=== PATIENT | male | born 1950 | race Caucasian/White ===

== ENCOUNTER 2016-07-30 11:25 | Inpatient (IN) | payer OTHER ==
--- NOTE | 2016-07-30 11:41 | ED Physician Documentation ---
Dyspnea - HISTORIAN Historian: patient - HPI Stated Complaint: dyspnea Chief Complaint: Dyspnea Onset: other (has been having some increasing rpoblems with SOB, Dyspnea. Has developed a cough, ) Duration: continues in ED Initiating Event: denies: upper respiratory illness Severity: moderate Associated Symptoms: productive cough (white). denies: chills, fever, sweating , chest pain, chest discomfort, heart racing, leg pain, calf pain, light- headedness Further Comments: yes (66yo white male with known COPD has been having some increaing dyspnea over the last week to 10 days. Worse with laying down. Denies any chest pain or pressure. Has been having some increase swelling.) - ROS CONST: no problems - PAST HX Lung Disease: COPD, other (Bipolar disorder, vetiligo, OA- genralized) Cardiac Disease: other (HTN) PE Risk Factors: none Surgeries/Procedures: other (tonsilectomy, circumcision) Other History: none Immunizations: referred to PCP Allergies/Adverse Reactions: Allergies Allergy/AdvReac Type Severity Reaction Status Date / Time thioridazine HCl Allergy Rash Verified 07/30/16 11:46 [From [facility]] Home Medications: Ambulatory Orders Medication Instructions Recorded Acetaminophen [Tylenol Extra 1,000 mg PO Q4 PRN 11/07/15 Strength] Calcium Carb 500Mg [Tums] 1,000 mg PO DIRECTED PRN 11/07/15 Metoprolol Tartrate [Lopressor] 50 mg PO BID 11/07/15 - SOCIAL HX Smoking History: less than 1 pack/day (1/2 ppd) Alcohol Use: none Drug Use: none - FAMILY HX Family History: no significant history - VITAL SIGNS Vital Signs: Vital Signs Temp Pulse Resp BP Pulse Ox 140/90 11/09/15 06:00 - REVIEWED ASSESSMENTS Nursing Assessment Reviewed: Yes Vitals Reviewed: Yes Dyspnea Physical Exam - EXAM General Appearance: alert Neck: nml inspection. No: lymphadenopathy Respiratory: no resp. distress, no pain on inspiration, speaks full sentences, respiratory distress (mild), rales (bilateral), rhonchi (few course), no pleuritic chest pain. No: chest wall tenderness CVS: reg. rate & rhythm, no murmur, no gallop, no friction rub, pulses full Abdomen: non-tender, no organomegaly, no distention, no ascites, tenderness Skin: color nml, no rash, nml palp. Extremities: non-tender, normal range of motion Neuro/Psych: oriented x3, CN's nml as tested, mood/affect nml Discharge Clincal Impression: Congestive heart failure Qualifiers: Congestive heart failure type: systolic Congestive heart failure chronicity: acute Qualified Code(s): I50.21 - Acute systolic (congestive) heart failure Home Medications: Ambulatory Orders Acetaminophen [Tylenol Extra Strength] 1,000 mg PO Q4 PRN 11/07/15 Calcium Carb 500Mg [Tums] 1,000 mg PO DIRECTED PRN 11/07/15 Metoprolol Tartrate [Lopressor] 50 mg PO BID 11/07/15 Condition: Fair Disposition: ADMITTED INPATIENT Decision to Admit: [id number] Date of Decison to Admit: 07/30/16 Decision Time: 14:01
[2016-07-30 12:27] LABS: BASOPHILS % 0.4 (0.0-1.5); EOSINOPHILS % 0.1 % (0.0-6.8); LYMPHOCYTES # 0.8 # k/uL (0.6-4.0); MEAN CORPUSCULAR HEMOGLOBIN 30.5 pg (28.0-34.0); MONOCYTES # 0.3 # k/uL (0.0-0.9); MONOCYTES % 2.9 % (0.0-11.0); NEUTROPHILS # 10.2 # k/uL (1.4-7.7)
[2016-07-30 12:44] LABS: eGFR (African) > 60; eGFR (Non-African) > 60
--- NOTE | 2016-07-30 13:40 | Diagnostic Imaging Report ---
[facility] [address] [facility].[address] 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 HISTORY: Dyspnea and cough FINDINGS: Comparison is made to exam dated 01/30/2016. The heart remains enlarged. Mild central vascular prominence has remained stable. No definite acute infiltrate is seen. There is no pleural effusion or pneumothorax. The osseous structures are normal. Impression: 1. Mild cardiomegaly with persistent central vascular prominence, unchanged. Electronically signed on Jul 30, 2016 1:31:12 PM ASSOCIATE PROFESSOR OF VIOLIN by: Anuj RASCON
--- NOTE | 2016-07-30 14:42 | History and Physical Report ---
History of Present Illnes - History of Present Illness Reason for Visit: dyspnea History of Present Illness: 66yo white male with known COPD has been having some increaing dyspnea over the last week to 10 days. Worse with laying down. Denies any chest pain or pressure. Has been having some increase swelling. Patient was seen in the ED and noted to have an elevated BMP and some cardiomegally and pulmonary congestion on chest x-ray. - Past Medical History Cardiac: HTN Psych: Bipolar (well coontrolled at this time.) Musculoskeletal: Osteoarthritis (genrealized) Dermatology: Other (Vetiligo) - Past Surgical History Past Surgical History: Tonsillectomy, Other (circumcision) - Past Family History Father Family History: DM, (91yo) Mother Family History: DM, (dementia, alcoholism) Brother 1 Family History: Other (alcoholism) - Past Social History Smoke: # pack years (25), <1 pack per day (15 cigarettes/day) Occupation: disabled Alcohol: None Drugs: None Lives: [facility]) Domestic Violence: Negative - Health Maintenance Health Maintenance: Cholesterol, Influenza Vaccine, Pneumococcal Vaccine, Colonoscopy Influenza Vaccine: No Pneumonia Vaccine: Yes (current) Resuscitation Status: Resusciation Status Resuscitation Status Full Code - Unable to Obtain History Unable to Obtain: No Review of Systems - Review of Systems Constitutional: Weakness (genralized). negative: Fever, Chills, Sweats Eyes: negative: pain ENT: Nose Discharge, Nose Congestion. negative: Ear Pain, Ear Discharge, Nose Pain, Mouth Pain, Mouth Swelling, Throat Pain, Throat Swelling Respiratory: Cough, Dry, Shortness of Breath, Hemoptysis Cardiovascular: Paroxysmal Noc. Dyspnea, Edema. negative: Chest Pain, Palpitations, Orthopnea, Light Headedness Gastrointestinal: negative: Nausea, Vomiting, Abdominal Pain, Diarrhea, Constipation, Melena, Hematochezia Genitourinary: negative: Dysuria, Frequency Musculoskeletal: Back Pain. negative: Neck Pain, Shoulder Pain Skin: negative: Rash Neurological: negative: Weakness, Numbness - Medications/Allergies Allergies/Adverse Reactions: Allergies Allergy/AdvReac Type Severity Reaction Status Date / Time thioridazine HCl Allergy Rash [facility] 07/30/16 11:46 [facility] Current Inpatient Medications: Current Inpatient Medications Amlodipine Besylate (Norvasc) [address] Benazepril HCl (Lotensin) 20 mg PO QD [facility] Enoxaparin Sodium (Lovenox) 30 mg SQ QD [facility] Stop: 08/12/16 15:01 Furosemide (Lasix) 20 mg IVP 714 [facility] Miscellaneous (Patient Own Med) 1 each PO QDAY [facility] Naproxen (Naprosyn) 375 mg PO BS [facility] Potassium Chloride (Klor-Con M20) 40 meq PO TID [facility] Sodium Chloride (Normal Saline Flush) 3 ml IV BID [facility] Exam - Exam General: Alert, Oriented to Person, Oriented to Place, Oriented to Time, Cooperative, Moderate distress HEENT: Atraumatic, PERRLA Neck: Normal Range of Motion. No: Stridor, Rigidity, Lymphadenopathy Carotids: WNL Thyroid: WNL Lungs: Normal air movement, Speaks full Sentences, Respiratory Distress (mild), Wheezes, Rales (in bases bilaterally). No: Rhonchi Cardiovascular: Regular rate, Normal S1, Normal S2, No murmurs Peripheral Edema: 2 plus Peripheral Pulses: intact Abdomen: Normal bowel sounds, Soft, No tenderness, No hepatospenomegaly, No masses, Distended Integumentary: Normal, [place], Warm, Dry Extremities: No clubbing, No cyanosis, No edema, Normal pulses Neurological: Normal gait, Normal speech, Strength Equal Bilat, Normal tone, Sensation intact, Cranial nerves 3-12 NL, Reflexes 2+ Psych/Mental Status: Mental status NL (at baseline), Mood NL. No: Appropriate Affect (at baseline), Intact Judgment Assessment/Plan - Assessment/Plan (1) Congestive heart failure Status: Acute Assessment: Will start IV Lasix, get serial troponins and monitor respiratory status (2) COPD (chronic obstructive pulmonary disease) Status: Acute (3) Bipolar 1 disorder Status: Acute Assessment: continue with home meds (4) Essential (primary) hypertension Status: Acute Assessment: continue with home meds (5) Osteoarthritis Status: Acute Assessment: continue home meds VTE Assessment - RISK FACTOR SCORE VTE RISK FACTOR SCORES: AGE OVER 60 YEARS, CONGESTIVE HEART FAILURE OR MYOCARDIAL INFARCTION - RISK VTE MODERATE RISK: SCORE OF 2 (RISK PROXIMAL DVT 2-4%) PROPHYAXIS NEEDED
[2016-07-30] MEDS ORDERED: INFLUENZA VACCINE/PF 60 MCG/0.5 ML DISP.SYRIN IM SCH (15:00)
[2016-07-30 15:02] VITALS: BMI 30.9
[2016-07-30] MEDS: FUROSEMIDE 20 MG/2 ML VIAL IVP SCH (15:36)
[2016-07-30] MEDS: BENAZEPRIL HCL 10 MG TABLET PO SCH (15:36)
[2016-07-30] MEDS: ENOXAPARIN SODIUM 30 MG/0.3 ML DISP.SYRIN SQ SCH (15:36)
[2016-07-30] MEDS: NAPROXEN 250 MG TABLET PO SCH (17:07)
[2016-07-30] MEDS: POTASSIUM CHLORIDE 20 MEQ TABLET.ER PO SCH (17:12)
[2016-07-30] MEDS: SALINE FLUSH 10 ML DISP.SYRIN IVF SCH (20:46)
[2016-07-31] MEDS: FUROSEMIDE 20 MG/2 ML VIAL IVP SCH ×2 (06:13→13:10)
[2016-07-31 08:01] LABS: eGFR (African) > 60; eGFR (Non-African) > 60
[2016-07-31] MEDS: POTASSIUM CHLORIDE 20 MEQ TABLET.ER PO SCH ×2 (09:44→12:36)
[2016-07-31] MEDS: NAPROXEN 250 MG TABLET PO SCH ×2 (09:44→17:13)
[2016-07-31] MEDS: SALINE FLUSH 10 ML DISP.SYRIN IVF SCH ×2 (09:45→20:16)
[2016-07-31] MEDS: amLODIPine BESYLATE 5 MG TABLET PO SCH (09:45)
[2016-07-31] MEDS: PATIENT OWN MED 1 EACH EACH PO SCH (09:46)
[2016-07-31] MEDS: ENOXAPARIN SODIUM 30 MG/0.3 ML DISP.SYRIN SQ SCH (15:23)
[2016-07-31] MEDS: BENAZEPRIL HCL 10 MG TABLET PO SCH (15:23)
[2016-07-31] MEDS ORDERED: IBUPROFEN 400 MG TABLET PO PRN (15:55)
--- NOTE | 2016-07-31 16:01 | Inpatient Progress Note ---
Subjective - Required Recertification Statement I anticipate X number of days because-include discharge plan: 1 day - Review of Systems Events since last encounter: Patient seems slightly confused some today. Breathing seems to be better, not as SOB as before. Patient denies any cough at this time. Is having some mild orthopneic symptoms. General: Denies: Chills Cardiovascular: Denies: Chest Pain, Edema Gastrointestinal: Denies: Nausea, Vomiting, Abdominal Pain Neurological: Confusion. Denies: Incoordination, Change in Speech, Seizures Objective - Exam Vitals and I&O: Vital Signs Temp 97 F L 07/31/16 14:13 Pulse 116 H 07/31/16 14:13 Resp 18 07/31/16 10:00 BP 102/74 07/31/16 14:13 Pulse Ox 92 07/31/16 14:13 Intake & Output 07/30/16 07/31/16 07/31/16 23:59 11:59 23:59 Intake Total 240 1080 Balance 240 1080 Weight 87.09 kg 87.543 kg Intake: Oral 240 1080 Other: Voiding Method Urinal Toilet # Voids 1 2 # Bowel Movements 0 General: Alert (mildly confused, I am not following his conversation at time. ) , Oriented to Person, Oriented to Place, Oriented to Time, Cooperative Neck: Supple, No JVD Lungs: Normal air movement, Speaks full Sentences, Rales (bases bilaterally). No: Wheezes, Rhonchi Cardiovascular: Regular rate, Normal S1, Normal S2, No murmurs - Results Results: Laboratory Results WBC 11.60 K/ul (4.00-12.00) 07/30/16 12:15 RBC 4.56 M/ul (3.90-5.20) 07/30/16 12:15 Hgb 13.9 g/dL (12.0-18.0) 07/30/16 12:15 Hct 43.4 % (37.0-53.0) 07/30/16 12:15 MCV 95.1 fl (80.0-100.0) 07/30/16 12:15 MCH 30.5 pg (28.0-34.0) 07/30/16 12:15 MCHC 32.1 g/dL (30.0-36.0) 07/30/16 12:15 RDW 14.4 % (11.3-14.3) H 07/30/16 12:15 Plt Count 397 K/mm3 (130-400) 07/30/16 12:15 Neut % (Auto) 88.1 % (39.0-79.0) H 07/30/16 12:15 Lymph % (Auto) 6.4 % (16.0-50.0) L 07/30/16 12:15 [place] % (Auto) 2.9 % (0.0-11.0) 07/30/16 12:15 Eos % (Auto) 0.1 % (0.0-6.8) 07/30/16 12:15 Baso % (Auto) 0.4 (0.0-1.5) 07/30/16 12:15 Neut # 10.2 # k/uL (1.4-7.7) H 07/30/16 12:15 Lymph # 0.8 # k/uL (0.6-4.0) 07/30/16 12:15 [place] # 0.3 # k/uL (0.0-0.9) 07/30/16 12:15 Eos # 0.0 # k/uL (0.0-0.6) 07/30/16 12:15 Baso # 0.0 # k/uL (0.0-0.5) 07/30/16 12:15 Reactive Lymphs % 2.0 % (0.0-5.0) 07/30/16 12:15 Reactive Lymphs # 0.2 # k/uL (0.0-0.8) 07/30/16 12:15 Sodium 144 mmol/L (136-145) 07/31/16 06:55 Potassium 3.8 mmol/L (3.5-5.0) 07/31/16 06:55 Chloride 101 mmol/L (98-110) 07/31/16 06:55 Carbon Dioxide 37 mmol/L (20-32) H 07/31/16 06:55 BUN 36 mg/dL (10-26) H 07/31/16 06:55 Creatinine 0.9 mg/dL (0.4-1.5) 07/31/16 06:55 Estimated Creat Clear 99 07/31/16 06:55 Est GFR ( Amer) > 60 (60-) 07/31/16 06:55 Est GFR (Non-Af Amer) > 60 (60-) 07/31/16 06:55 Glucose 124 mg/dL (70-99) H 07/31/16 06:55 Calcium 9.1 mg/dL (8.5-10.5) 07/31/16 06:55 Total Bilirubin 0.5 mg/dL (0.2-1.2) 07/30/16 12:15 AST 34 U/L (0-41) 07/30/16 12:15 ALT 61 U/L (0-45) H 07/30/16 12:15 Alkaline Phosphatase 110 U/L (46-116) 07/30/16 12:15 NT-Pro-B Natriuret Pep 736.0 pg/mL (15.0-125.0) H 07/30/16 12:15 Total Protein 7.9 g/dL (6.0-8.5) 07/30/16 12:15 Albumin 5.0 g/dL (3.0-5.5) 07/30/16 12:15 Assessment/Plan - Assessment/Plan (1) Congestive heart failure Status: Acute Current Visit: Yes Assessment: Improved with IV lasix (2) COPD (chronic obstructive pulmonary disease) Status: Acute Current Visit: Yes Assessment: stable (3) Bipolar 1 disorder Status: Acute Current Visit: No Assessment: stable (4) Essential (primary) hypertension Status: Acute Current Visit: No Assessment: stable (5) Osteoarthritis Status: Acute Current Visit: No (6) Hypokalemia Status: Acute Current Visit: Yes Assessment: Potassium is back to normal
[2016-08-01] MEDS: FUROSEMIDE 20 MG/2 ML VIAL IVP SCH ×2 (06:18→15:39)
[2016-08-01 07:42] LABS: eGFR (African) > 60; eGFR (Non-African) > 60
[2016-08-01] MEDS: SALINE FLUSH 10 ML DISP.SYRIN IVF SCH ×2 (08:47→20:07)
[2016-08-01] MEDS: PATIENT OWN MED 1 EACH EACH PO SCH (08:48)
[2016-08-01] MEDS: amLODIPine BESYLATE 5 MG TABLET PO SCH (08:48)
[2016-08-01] MEDS: NAPROXEN 250 MG TABLET PO SCH ×2 (08:48→17:17)
[2016-08-01] MEDS: POTASSIUM CHLORIDE 20 MEQ TABLET.ER PO SCH (08:48)
[2016-08-01] MEDS ORDERED: methylPREDNISolone SOD SUCC 125 MG/2 ML VIAL IVP ONE (10:59)
--- NOTE | 2016-08-01 11:00 | Inpatient Progress Note ---
Subjective - Required Recertification Statement I anticipate X number of days because-include discharge plan: 1 day - Review of Systems Events since last encounter: patient stated he didn't seem to be doing some better. Patient continued to have some congestion and a productive cough up some white to clear phlegm. Patient has been having some mild orthopneic symptoms. No fever or chills noted. General: Denies: Chills, Fatigue Pulmonary: Dyspnea, Cough Cardiovascular: Denies: Chest Pain, Palpitations Gastrointestinal: Denies: Nausea, Vomiting, Abdominal Pain Objective - Exam Vitals and I&O: Vital Signs Temp 97.8 F 08/01/16 08:39 Pulse 92 H 08/01/16 09:00 Resp 22 08/01/16 09:00 BP 134/82 08/01/16 08:39 Pulse Ox 92 08/01/16 08:39 Intake & Output 07/31/16 07/31/16 08/01/16 11:59 23:59 11:59 Intake Total 240 1560 480 Balance 240 1560 480 Weight 87.543 kg 87.09 kg Intake: Oral 240 1560 480 Other: Voiding Method Toilet Toilet Toilet # Voids 1 2 General: Alert, Oriented to Person, Oriented to Place, Oriented to Time, Cooperative, Mild distress Lungs: Normal air movement, Speaks full Sentences, Wheezes (L>R), Rhonchi (few scattered) Extremities: Other (trace edema) Skin: Normal, [place], Warm, Dry Neurological: Normal gait, Normal speech, Cranial nerves 3-12 NL - Results Results: Laboratory Results WBC 11.60 K/ul (4.00-12.00) 07/30/16 12:15 RBC 4.56 M/ul (3.90-5.20) 07/30/16 12:15 Hgb 13.9 g/dL (12.0-18.0) 07/30/16 12:15 Hct 43.4 % (37.0-53.0) 07/30/16 12:15 MCV 95.1 fl (80.0-100.0) 07/30/16 12:15 MCH 30.5 pg (28.0-34.0) 07/30/16 12:15 MCHC 32.1 g/dL (30.0-36.0) 07/30/16 12:15 RDW 14.4 % (11.3-14.3) H 07/30/16 12:15 Plt Count 397 K/mm3 (130-400) 07/30/16 12:15 Neut % (Auto) 88.1 % (39.0-79.0) H 07/30/16 12:15 Lymph % (Auto) 6.4 % (16.0-50.0) L 07/30/16 12:15 [place] % (Auto) 2.9 % (0.0-11.0) 07/30/16 12:15 Eos % (Auto) 0.1 % (0.0-6.8) 07/30/16 12:15 Baso % (Auto) 0.4 (0.0-1.5) 07/30/16 12:15 Neut # 10.2 # k/uL (1.4-7.7) H 07/30/16 12:15 Lymph # 0.8 # k/uL (0.6-4.0) 07/30/16 12:15 [place] # 0.3 # k/uL (0.0-0.9) 07/30/16 12:15 Eos # 0.0 # k/uL (0.0-0.6) 07/30/16 12:15 Baso # 0.0 # k/uL (0.0-0.5) 07/30/16 12:15 Reactive Lymphs % 2.0 % (0.0-5.0) 07/30/16 12:15 Reactive Lymphs # 0.2 # k/uL (0.0-0.8) 07/30/16 12:15 Sodium 143 mmol/L (136-145) 08/01/16 07:10 Potassium 4.0 mmol/L (3.5-5.0) 08/01/16 07:10 Chloride 100 mmol/L (98-110) 08/01/16 07:10 Carbon Dioxide 31 mmol/L (20-32) 08/01/16 07:10 BUN 32 mg/dL (10-26) H 08/01/16 07:10 Creatinine 0.8 mg/dL (0.4-1.5) 08/01/16 07:10 Estimated Creat Clear 111 08/01/16 07:10 Est GFR ( Amer) > 60 (60-) 08/01/16 07:10 Est GFR (Non-Af Amer) > 60 (60-) 08/01/16 07:10 Glucose 128 mg/dL (70-99) H 08/01/16 07:10 Calcium 9.5 mg/dL (8.5-10.5) 08/01/16 07:10 Total Bilirubin 0.5 mg/dL (0.2-1.2) 07/30/16 12:15 AST 34 U/L (0-41) 07/30/16 12:15 ALT 61 U/L (0-45) H 07/30/16 12:15 Alkaline Phosphatase 110 U/L (46-116) 07/30/16 12:15 NT-Pro-B Natriuret Pep 736.0 pg/mL (15.0-125.0) H 07/30/16 12:15 Total Protein 7.9 g/dL (6.0-8.5) 07/30/16 12:15 Albumin 5.0 g/dL (3.0-5.5) 07/30/16 12:15 Assessment/Plan - Assessment/Plan (1) Congestive heart failure Status: Acute Assessment: Appears to be improving but pt is still complaining of some dyspnea and cough. (2) COPD (chronic obstructive pulmonary disease) Status: Acute Assessment: patient may be having a mild exacerbation of his COPD along with the congestive heart failure that may be contributing some to the symptoms that he is having. (3) Bipolar 1 disorder Status: Acute Assessment: stable on home medications. (4) Essential (primary) hypertension Status: Acute Assessment: patient is stable on home medications. (5) Osteoarthritis Status: Acute Assessment: stable (6) Hypokalemia Status: Acute
[2016-08-01] MEDS: BENAZEPRIL HCL 10 MG TABLET PO SCH (15:39)
[2016-08-01] MEDS: ENOXAPARIN SODIUM 30 MG/0.3 ML DISP.SYRIN SQ SCH (15:39)
[2016-08-01] MEDS: methylPREDNISolone SOD SUCC 40 MG/ML VIAL IVP SCH (20:05)
--- NOTE | 2016-08-01 20:44 | Diagnostic Imaging Report ---
[facility] [address] [facility].[address] 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 Clinical history: Cough and chf. Findings: Comparison is made of July 30, 2016. There is interval development of left lower lobe infiltrate and atelectasis. The cardiac and mediastinal silhouettes are stable. Mild pulmonary vascular congestion persists. The trachea is midline and aortic arch contour is normal. Multilevel degenerative thoracic spondylosis as noted. Impression: Left lower lobe infiltrate and atelectasis. ~ Electronically signed on Aug 01, 2016 9:39:33 AM MILLINER HELPER by: Pop RASCON
[2016-08-02] MEDS: FUROSEMIDE 20 MG/2 ML VIAL IVP SCH ×2 (06:11→14:40)
[2016-08-02] MEDS: NAPROXEN 250 MG TABLET PO SCH ×2 (08:08→18:00)
[2016-08-02] MEDS: amLODIPine BESYLATE 5 MG TABLET PO SCH (08:10)
[2016-08-02] MEDS: PATIENT OWN MED 1 EACH EACH PO SCH (08:11)
[2016-08-02] MEDS: POTASSIUM CHLORIDE 20 MEQ TABLET.ER PO SCH (08:11)
[2016-08-02] MEDS: methylPREDNISolone SOD SUCC 40 MG/ML VIAL IVP SCH ×2 (08:12→20:36)
[2016-08-02] MEDS: SALINE FLUSH 10 ML DISP.SYRIN IVF SCH ×2 (08:42→20:36)
--- NOTE | 2016-08-02 09:16 | Inpatient Progress Note ---
Subjective - Required Recertification Statement I anticipate X number of days because-include discharge plan: 2 day - Review of Systems Events since last encounter: Patient's CXR show LLL pneumonia. Patient continues to have some issues with breathing especially with exertion. SAO2 has been stable at lower to mid 90s. Pt has had a mild nonproductive cough. No chest pain or orthopnic symptoms noted. Objective - Exam Vitals and I&O: Vital Signs Temp 98.2 F 08/02/16 06:00 Pulse 81 08/02/16 06:00 Resp 20 08/02/16 06:00 BP 125/86 08/02/16 06:00 Pulse Ox 94 08/02/16 06:00 Intake & Output 08/01/16 08/01/16 08/02/16 11:59 23:59 11:59 Intake Total 480 720 240 Balance 480 720 240 Weight 87.09 kg 87.09 kg Intake: Oral 480 720 240 Other: Voiding Method Toilet Toilet # Voids 2 2 # Bowel Movements 0 General: Alert, Oriented to Person, Oriented to Place, Oriented to Time, Cooperative, Mild distress Lungs: Speaks full Sentences, Respiratory Distress (mild), Rales, Rhonchi. No: Wheezes Cardiovascular: Regular rate, Normal S1, Normal S2 Abdomen: Normal bowel sounds, Soft, No tenderness - Results Results: Laboratory Results WBC 11.60 K/ul (4.00-12.00) 07/30/16 12:15 RBC 4.56 M/ul (3.90-5.20) 07/30/16 12:15 Hgb 13.9 g/dL (12.0-18.0) 07/30/16 12:15 Hct 43.4 % (37.0-53.0) 07/30/16 12:15 MCV 95.1 fl (80.0-100.0) 07/30/16 12:15 MCH 30.5 pg (28.0-34.0) 07/30/16 12:15 MCHC 32.1 g/dL (30.0-36.0) 07/30/16 12:15 RDW 14.4 % (11.3-14.3) H 07/30/16 12:15 Plt Count 397 K/mm3 (130-400) 07/30/16 12:15 Neut % (Auto) 88.1 % (39.0-79.0) H 07/30/16 12:15 Lymph % (Auto) 6.4 % (16.0-50.0) L 07/30/16 12:15 [place] % (Auto) 2.9 % (0.0-11.0) 07/30/16 12:15 Eos % (Auto) 0.1 % (0.0-6.8) 07/30/16 12:15 Baso % (Auto) 0.4 (0.0-1.5) 07/30/16 12:15 Neut # 10.2 # k/uL (1.4-7.7) H 07/30/16 12:15 Lymph # 0.8 # k/uL (0.6-4.0) 07/30/16 12:15 [place] # 0.3 # k/uL (0.0-0.9) 07/30/16 12:15 Eos # 0.0 # k/uL (0.0-0.6) 07/30/16 12:15 Baso # 0.0 # k/uL (0.0-0.5) 07/30/16 12:15 Reactive Lymphs % 2.0 % (0.0-5.0) 07/30/16 12:15 Reactive Lymphs # 0.2 # k/uL (0.0-0.8) 07/30/16 12:15 Sodium 143 mmol/L (136-145) 08/01/16 07:10 Potassium 4.0 mmol/L (3.5-5.0) 08/01/16 07:10 Chloride 100 mmol/L (98-110) 08/01/16 07:10 Carbon Dioxide 31 mmol/L (20-32) 08/01/16 07:10 BUN 32 mg/dL (10-26) H 08/01/16 07:10 Creatinine 0.8 mg/dL (0.4-1.5) 08/01/16 07:10 Estimated Creat Clear 111 08/01/16 07:10 Est GFR ( Amer) > 60 (60-) 08/01/16 07:10 Est GFR (Non-Af Amer) > 60 (60-) 08/01/16 07:10 Glucose 128 mg/dL (70-99) H 08/01/16 07:10 Estimat Average Glucose 128 mg/dL 08/01/16 07:10 Hemoglobin A1c 6.1 % (4.0-5.6) H 08/01/16 07:10 Calcium 9.5 mg/dL (8.5-10.5) 08/01/16 07:10 Total Bilirubin 0.5 mg/dL (0.2-1.2) 07/30/16 12:15 AST 34 U/L (0-41) 07/30/16 12:15 ALT 61 U/L (0-45) H 07/30/16 12:15 Alkaline Phosphatase 110 U/L (46-116) 07/30/16 12:15 NT-Pro-B Natriuret Pep 736.0 pg/mL (15.0-125.0) H 07/30/16 12:15 Total Protein 7.9 g/dL (6.0-8.5) 07/30/16 12:15 Albumin 5.0 g/dL (3.0-5.5) 07/30/16 12:15 Assessment/Plan - Assessment/Plan (1) Congestive heart failure Status: Acute Assessment: improved, chest x-ray for this looks better. (2) COPD (chronic obstructive pulmonary disease) Status: Acute (3) Bipolar 1 disorder Status: Acute Assessment: stable (4) Essential (primary) hypertension Status: Acute (5) Hypokalemia Status: Acute Assessment: resolved (6) Diabetes type 2, controlled Status: Acute Qualifiers: Diabetes mellitus complication status: without complication Plan: will start metformin and check BS. Will start diabetic teaching. (7) Pneumonia Status: Acute Qualifiers: Pneumonia type: due to unspecified organism Laterality: left Lung location: lower lobe of lung Qualified Code(s): J18.9 - Pneumonia, unspecified organism Assessment: Patient's CXR show LLL pneumonia. Will get blood cultures and start IV antibiotics. Will recheck CBC.
[2016-08-02] MEDS: LEVOFLOXACIN 500 MG TABLET PO SCH (10:37)
[2016-08-02] MEDS: AZITHROMYCIN 500 MG in 0.9 % SODIUM CHLORIDE 250 ML IV SCH (10:38)
[2016-08-02 10:44] LABS: BASOPHILS % 0.2 (0.0-1.5); EOSINOPHILS % 0.2 % (0.0-6.8); LYMPHOCYTES # 0.7 # k/uL (0.6-4.0); MEAN CORPUSCULAR HEMOGLOBIN 30.5 pg (28.0-34.0); MONOCYTES # 0.2 # k/uL (0.0-0.9); MONOCYTES % 2.6 % (0.0-11.0); NEUTROPHILS # 8.1 # k/uL (1.4-7.7)
[2016-08-02] MEDS: BENAZEPRIL HCL 10 MG TABLET PO SCH (14:39)
[2016-08-02] MEDS: ENOXAPARIN SODIUM 30 MG/0.3 ML DISP.SYRIN SQ SCH (14:41)
[2016-08-03] MEDS: FUROSEMIDE 20 MG/2 ML VIAL IVP SCH ×2 (06:15→13:47)
[2016-08-03] MEDS: NAPROXEN 250 MG TABLET PO SCH ×2 (07:41→16:38)
[2016-08-03] MEDS: POTASSIUM CHLORIDE 20 MEQ TABLET.ER PO SCH (09:01)
[2016-08-03] MEDS: LEVOFLOXACIN 500 MG TABLET PO SCH (09:01)
[2016-08-03] MEDS: PATIENT OWN MED 1 EACH EACH PO SCH (09:01)
[2016-08-03] MEDS: amLODIPine BESYLATE 5 MG TABLET PO SCH (09:01)
[2016-08-03] MEDS: methylPREDNISolone SOD SUCC 40 MG/ML VIAL IVP SCH ×2 (09:06→21:00)
[2016-08-03] MEDS: SALINE FLUSH 10 ML DISP.SYRIN IVF SCH ×3 (09:07→21:00)
[2016-08-03] MEDS: AZITHROMYCIN 500 MG in 0.9 % SODIUM CHLORIDE 250 ML IV SCH (09:23)
[2016-08-03] MEDS ORDERED: LOSARTAN POTASSIUM 50 MG TABLET PO ONE (12:57)
[2016-08-03] MEDS: BENAZEPRIL HCL 10 MG TABLET PO SCH (16:00)
[2016-08-03] MEDS: ENOXAPARIN SODIUM 30 MG/0.3 ML DISP.SYRIN SQ SCH (16:01)
[2016-08-04] MEDS: FUROSEMIDE 20 MG/2 ML VIAL IVP SCH ×2 (06:33→15:42)
[2016-08-04] MEDS: NAPROXEN 250 MG TABLET PO SCH ×2 (07:35→16:50)
[2016-08-04] MEDS: amLODIPine BESYLATE 5 MG TABLET PO SCH (08:53)
[2016-08-04] MEDS: POTASSIUM CHLORIDE 20 MEQ TABLET.ER PO SCH (08:53)
[2016-08-04] MEDS: LEVOFLOXACIN 500 MG TABLET PO SCH (08:53)
[2016-08-04] MEDS: PATIENT OWN MED 1 EACH EACH PO SCH (08:54)
[2016-08-04 09:03] VITALS: BP 136/94
[2016-08-04] MEDS: AZITHROMYCIN 500 MG in 0.9 % SODIUM CHLORIDE 250 ML IV SCH (09:13)
[2016-08-04] MEDS: methylPREDNISolone SOD SUCC 40 MG/ML VIAL IVP SCH (09:14)
[2016-08-04] MEDS: SALINE FLUSH 10 ML DISP.SYRIN IVF SCH (09:14)
[2016-08-04] MEDS: ENOXAPARIN SODIUM 30 MG/0.3 ML DISP.SYRIN SQ SCH (15:37)
[2016-08-04] MEDS: BENAZEPRIL HCL 10 MG TABLET PO SCH (15:37)
--- NOTE | 2016-08-05 08:40 | Discharge Summary ---
Discharge Summary - Discharge Sumary History of Present Illness: 66yo white male with known COPD has been having some increasing dyspnea over the last week to 10 days. Worse with laying down. Denies any chest pain or pressure. Has been having some increase swelling. Patient was seen in the ED and noted to have an elevated BMP and some cardiomegally and pulmonary congestion on chest x-ray. It was felt that he was having some CHF and was admitted to the hospital for further evaluation and treatment. Home Medications: Ambulatory Orders Medication Instructions Recorded Acetaminophen [Tylenol Extra 1,000 mg PO Q4 PRN 11/07/15 Strength] Calcium Carb 500Mg [Tums] 1,000 mg PO DIRECTED PRN 11/07/15 Metoprolol Tartrate [Lopressor] 50 mg PO BID 11/07/15 Levofloxacin [Levaquin] 500 mg PO DAILY #5 tablet 08/04/16 Metformin HCl [Glucophage] [place] [address] #60 tablet 08/04/16 Prednisone 10 mg PO DIRECTED #7 tablet 08/04/16 Consultations this Visit: None Procedures this Visit: None Allergies/Adverse Reactions: Allergies Allergy/AdvReac Type Severity Reaction Status Date / Time thioridazine HCl Allergy Rash Verified 07/30/16 11:46 [[facility] Discharge Summary: patient is a 66-year-old white male who was admitted to the hospital for congestive heart failure. Patient was started on IV Lasix therapy. Patient had good diuresis. Patient did have some improvement with his respiratory status. However patient continued to have a cough that became productive of some green to yellow phlegm. Repeat chest x-ray showed a developing left lower lobe infiltrate. Patient was subsequently started on Levaquin and azithromycin. Patient was started on high flow nebulization treatments. Patient was noted to have elevated blood sugars during his hospitalization. A1c was drawn and was 6.1. At the time of dismissal patient was doing better but still requiring oxygen therapy in order to maintain SaO2 greater than 90%. Patient was subsequently discharged in stable condition. - Final Diagnosis (1) Congestive heart failure Problems: improved. Patient was advised to check his weight on a daily basis. If he gains more than 3 pounds in 1 day or 5 times a week. Was advised to call me. Patient will have a echocardiogram done on an outpatient basis. (2) COPD (chronic obstructive pulmonary disease) Problems: patient was encouraged to stop smoking. (3) Bipolar 1 disorder Problems: this remained stable on home medications. (4) Essential (primary) hypertension Problems: hypertension remained stable on home medications. (5) Hypokalemia Problems: improved with supplemental K (6) Diabetes type 2, controlled Problems: patient was started on metformin 500 mg daily. (7) Pneumonia Problems: we'll continue antibiotic therapy at home.
--- NOTE | 2016-08-05 08:41 | Inpatient Progress Note ---
Subjective - Required Recertification Statement I anticipate X number of days because-include discharge plan: 1 - Review of Systems Events since last encounter: Patient does seem to be doing better today. Patient does have a cough still, but is less productive. Patient stated he had been ambulating some. Still requires oxygen therapy to maintain SaO2 greater than 90%. Patient denies any chest pain or chest pressure. General: Denies: Night Sweats Cardiovascular: Denies: Chest Pain, Palpitations, Orthopnea, Paroxysmal Noc. Dyspnea Gastrointestinal: Denies: Nausea, Vomiting, Abdominal Pain, Diarrhea, Constipation Genitourinary: Denies: Dysuria, Frequency Objective - Exam Vitals and I&O: Vital Signs Temp 98.3 F 08/04/16 14:00 Pulse 96 H 08/04/16 14:00 Resp 20 08/04/16 14:00 BP 136/94 08/04/16 14:00 Pulse Ox 92 08/04/16 14:00 Intake & Output 08/04/16 08/04/16 08/05/16 11:59 23:59 11:59 Intake Total 400 Balance 400 Weight 90.718 kg Intake: Oral 400 Other: Voiding Method Toilet General: Alert, Oriented to Person, Oriented to Place, Oriented to Time. No: Cooperative, No acute distress, Mild distress Lungs: Normal air movement, Speaks full Sentences, Wheezes (improved some). No : Rales, Rhonchi Cardiovascular: Regular rate, Normal S1, Normal S2, No murmurs Abdomen: Normal bowel sounds, Soft, No tenderness, No hepatospenomegaly Skin: Normal, [place], Warm, Dry Neurological: Normal gait, Normal speech, Cranial nerves 3-12 NL - Results Results: Laboratory Results WBC 9.10 K/ul (4.00-12.00) 08/02/16 10:35 RBC 4.35 M/ul (3.90-5.20) 08/02/16 10:35 Hgb 13.3 g/dL (12.0-18.0) 08/02/16 10:35 Hct 42.1 % (37.0-53.0) 08/02/16 10:35 MCV 96.9 fl (80.0-100.0) 08/02/16 10:35 MCH 30.5 pg (28.0-34.0) 08/02/16 10:35 MCHC 31.5 g/dL (30.0-36.0) 08/02/16 10:35 RDW 14.1 % (11.3-14.3) 08/02/16 10:35 Plt Count 387 K/mm3 (130-400) 08/02/16 10:35 Neut % (Auto) 88.6 % (39.0-79.0) H 08/02/16 10:35 Lymph % (Auto) 7.4 % (16.0-50.0) L 08/02/16 10:35 [place] % (Auto) 2.6 % (0.0-11.0) 08/02/16 10:35 Eos % (Auto) 0.2 % (0.0-6.8) 08/02/16 10:35 Baso % (Auto) 0.2 (0.0-1.5) 08/02/16 10:35 Neut # 8.1 # k/uL (1.4-7.7) H 08/02/16 10:35 Lymph # 0.7 # k/uL (0.6-4.0) 08/02/16 10:35 [place] # 0.2 # k/uL (0.0-0.9) 08/02/16 10:35 Eos # 0.0 # k/uL (0.0-0.6) 08/02/16 10:35 Baso # 0.0 # k/uL (0.0-0.5) 08/02/16 10:35 Reactive Lymphs % 1.1 % (0.0-5.0) 08/02/16 10:35 Reactive Lymphs # 0.1 # k/uL (0.0-0.8) 08/02/16 10:35 Sodium 143 mmol/L (136-145) 08/01/16 07:10 Potassium 4.0 mmol/L (3.5-5.0) 08/01/16 07:10 Chloride 100 mmol/L (98-110) 08/01/16 07:10 Carbon Dioxide 31 mmol/L (20-32) 08/01/16 07:10 BUN 32 mg/dL (10-26) H 08/01/16 07:10 Creatinine 0.8 mg/dL (0.4-1.5) 08/01/16 07:10 Estimated Creat Clear 111 08/01/16 07:10 Est GFR ( Amer) > 60 (60-) 08/01/16 07:10 Est GFR (Non-Af Amer) > 60 (60-) 08/01/16 07:10 Glucose 128 mg/dL (70-99) H 08/01/16 07:10 Estimat Average Glucose 128 mg/dL 08/01/16 07:10 Hemoglobin A1c 6.1 % (4.0-5.6) H 08/01/16 07:10 Calcium 9.5 mg/dL (8.5-10.5) 08/01/16 07:10 Total Bilirubin 0.5 mg/dL (0.2-1.2) 07/30/16 12:15 AST 34 U/L (0-41) 07/30/16 12:15 ALT 61 U/L (0-45) H 07/30/16 12:15 Alkaline Phosphatase 110 U/L (46-116) 07/30/16 12:15 NT-Pro-B Natriuret Pep 736.0 pg/mL (15.0-125.0) H 07/30/16 12:15 Total Protein 7.9 g/dL (6.0-8.5) 07/30/16 12:15 Albumin 5.0 g/dL (3.0-5.5) 07/30/16 12:15 Assessment/Plan - Assessment/Plan (1) Congestive heart failure Status: Chronic (2) Bipolar 1 disorder Status: Acute Assessment: stable on home medications (3) Essential (primary) hypertension Status: Acute Assessment: stable on home medications (4) Hypokalemia Status: Acute (5) Diabetes type 2, controlled Status: Acute Qualifiers: Diabetes mellitus complication status: without complication (6) Pneumonia Status: Acute Qualifiers: Pneumonia type: due to unspecified organism Laterality: left Lung location: lower lobe of lung Qualified Code(s): J18.9 - Pneumonia, unspecified organism Assessment: will continue with present care
== END 2016-08-04 17:05 | disposition home or self-care (01) | DRG 190 ==
LOC: ED 11:25 → SOUTH 13:40
PROVIDERS: ADMIT Family Medicine; ATTEND Family Medicine
DX: J44.1 Chronic obstructive pulmonary disease with (acute) exacerbation (principal); J18.9 Pneumonia, unspecified organism; I50.9 Heart failure, unspecified; F31.9 Bipolar disorder, unspecified; I10 Essential (primary) hypertension; E87.6 Hypokalemia; E11.9 Type 2 diabetes mellitus without complications
CPT/HCPCS: 36415; 71020; 80048; 80053; 83036; 83880; 85025; 87040; 90656; 93005; 97003; 97116; 97161; 97165; 97535; A9270; J0456; J1650; J1940; J2920; J2930; J7050; 99222; 99232; 99238; J1030; S1016

== ENCOUNTER 2017-09-15 19:44 | Inpatient (IN) | payer OTHER ==
[2017-09-15] MEDS ORDERED: IPRATROPIUM/ALBUTEROL SULFATE 3 ML AMPUL.NEB NEB ONE (19:55)
--- NOTE | 2017-09-15 19:55 | ED Physician Documentation ---
General Adult - HISTORIAN Historian: patient - HPI Stated Complaint: cough/chest pain Chief Complaint: Chest Pain Onset: days ago (7) Timing: still present Severity: mild Further Comments: yes (he states he has chest pain after coughing. He states he has been coughing "all my life" he does smoke. Denies a fever He state he took all his meds today. He does continue to smoke.) Last known Well Code/Unknown Code: Unknown - ROS CONST: denies: fever, recent illness EYES/ENT: none CVS/RESP: chest pain, shortness of breath, cough GI/: denies: vomiting, nausea, diarrhea MS/SKIN/LYMPH: denies: calf pain, back pain NEURO/PSYCH: denies: headache, dizziness, numbness - PAST HX Past History: COPD, CHF, hypertension Surgeries/Procedures: other Immunizations: UTD Allergies/Adverse Reactions: Allergies Allergy/AdvReac Type Severity Reaction Status Date / Time thioridazine HCl Allergy Rash Verified 07/30/16 11:46 [From [facility]] Home Medications: Ambulatory Orders Medication Instructions Recorded Acetaminophen [Tylenol Extra 1,000 mg PO Q4 PRN 11/07/15 Strength] Citalopram Hydrobromide 20 mg PO DAILY 09/15/17 [Citalopram HBr] - SOCIAL HX Smoking History: cigarettes Alcohol Use: none Drug Use: none - FAMILY HX Family History: No - VITAL SIGNS Vital Signs: Vital Signs Temp Pulse Resp BP Pulse Ox 136/94 08/04/16 14:00 - REVIEWED ASSESSMENTS Nursing Assessment Reviewed: Yes Vitals Reviewed: Yes Progress - Progress Progress: 2138: he states he is feeling "ok" . DG ED Results Lab/Radiology - Radiology Radiology Impressions: Chest PA and lateral views Clinical history: Cough, dyspnea and chest pain There is large alveolar infiltrates in the right lower lobe and right middle lobe adjacent to the right heart margin. Smaller infiltrate seen in the left lung base. Underlying COPD. Normal heart shadow. Atherosclerotic thoracic aorta . followup examination until clearance is recommended and exclude underlying malignancy . no significant effusion . Impression: COPD. Bilateral lower lobe infiltrates right more than left without significant effusion . Recommend followup until complete resolution and exclude underlying malignancy specifically in the right lower lobe Electronically signed on Sep 15, 2017 8:40:44 PM PIPE STRAIGHTENER by: Markus Ballesteros General Adult Physical Exam - PHYSICAL EXAM GENERAL APPEARANCE: mild distress EENT: eye inspection normal NECK: normal inspection RESPIRATORY: wheezes, rhonchi, other (2129: Mild decrease in wheezing. Decrease in work on breathing. DG ) CVS: reg rate & rhythm, heart sounds normal, no murmur ABDOMEN: soft, normal bowel sounds, distended SKIN: warm/dry, normal color EXTREMITIES: non-tender, normal range of motion, no evidence of injury, edema NEURO: oriented X3, CN's nml as tested, motor nml, sensation nml, mood/affect nml, cognition normal, disoriented Discharge Clincal Impression: Pneumonia Qualifiers: Pneumonia type: due to unspecified organism Laterality: bilateral Lung location : lower lobe of lung Qualified Code(s): J18.9 - Pneumonia, unspecified organism Congestive heart failure Qualifiers: Congestive heart failure type: unspecified Congestive heart failure chronicity : chronic Qualified Code(s): I50.9 - Heart failure, unspecified Referrals: Markus Strong MD [Primary Care Provider] - 2 Days Condition: Stable Disposition: 09 ADMITTED INPATIENT Decision to Admit: [id number] Date of Decison to Admit: 09/15/17 Decision Time: 22:07
[2017-09-15 20:28] LABS: eGFR (African) > 60; eGFR (Non-African) > 60
[2017-09-15 20:30] LABS: MEAN CORPUSCULAR HEMOGLOBIN 30.9 pg (28.0-34.0); MEAN CORPUSCULAR VOLUME 95.3 fl (80.0-100.0)
[2017-09-15] MEDS ORDERED: FUROSEMIDE 20 MG/2 ML VIAL IVP ONE (20:36)
[2017-09-15] MEDS ORDERED: cefTRIAXone SODIUM 1 GM VIAL ONE (21:19)
[2017-09-15] MEDS ORDERED: 0.9 % SODIUM CHLORIDE 100 ML IV ONE (21:21)
[2017-09-15] MEDS: cefTRIAXone SODIUM 1 GM in 0.9 % SODIUM CHLORIDE 100 ML IV SCH (21:30)
[2017-09-15 22:50] VITALS: BMI 28.7
[2017-09-16] MEDS: IPRATROPIUM/ALBUTEROL SULFATE 3 ML AMPUL.NEB NEB SCH ×6 (02:24→20:25)
--- NOTE | 2017-09-16 06:28 | Diagnostic Imaging Report ---
JESSICA SIERRA [facility] [address] [facility] [address], [place]. [address] Report Submission Date: Sep 15, 2017 8:40:44 PM ERP ENGINEER Patient Study Name: MARCOS VICK Date: Sep 15, 2017 8:13:05 PM ERP ENGINEER Modality Type: DX Gender: M Description: CHEST : 50 Institution: [facility] Physician: JESSICA SIERRA Chest PA and lateral views Clinical history: Cough, dyspnea and chest pain There is large alveolar infiltrates in the right lower lobe and right middle lobe adjacent to the right heart margin. Smaller infiltrate seen in the left lung base. Underlying COPD. Normal heart shadow. Atherosclerotic thoracic aorta . followup examination until clearance is recommended and exclude underlying malignancy . no significant effusion . Impression: COPD. Bilateral lower lobe infiltrates right more than left without significant effusion . Recommend followup until complete resolution and exclude underlying malignancy specifically in the right lower lobe Electronically signed on Sep 15, 2017 8:40:44 PM ERP ENGINEER by: Markus RASCON
[2017-09-16 06:34] LABS: SEGMENTED NEUTROPHILS % 82 % (39-79)
[2017-09-16 06:35] LABS: MONOCYTES % 4 % (0-11)
--- NOTE | 2017-09-16 08:37 | History and Physical Report ---
History of Present Illnes - History of Present Illness Reason for Visit: Pneumonia/CHF History of Present Illness: This is a 67 year old male, resident of [facility] and patient of Dr. Strong who was admitted last month with pneumonia who had not been feeling well the past several days with cough and wheezing. He continued to decline and came to the ER last night with hypoxia, cough and wheezing. He was found to have bibasilar pneumonia and the right was dense enough that the radiologist has recommended follow up to resolution to exclude any underlying malignancy. He has a long history of smoking and continues to smoke, but is evasive regarding how much he smokes. He has been started on lasix, as well as Rocephin and azithromycin. He saw Dr. Strong last week, and was asking that his oxygen be picked up as he had stopped using it, however this had not been done yet, and he admits that he does need it. - Past Medical History Cardiac: HTN Psych: Bipolar (well coontrolled at this time.) Musculoskeletal: Osteoarthritis (genrealized) Dermatology: Other (Vetiligo) - Past Surgical History Past Surgical History: Tonsillectomy, Other (circumcision) - Past Social History Smoke: # pack years (25), <1 pack per day (15 cigarettes/day) Occupation: disabled Alcohol: None Drugs: None Lives: Jail ([facility]) Domestic Violence: Negative - Health Maintenance Health Maintenance: Cholesterol, Influenza Vaccine, Pneumococcal Vaccine, Colonoscopy Pneumonia Vaccine: Yes Resuscitation Status: Resusciation Status Resuscitation Status Full Code - Unable to Obtain History Unable to Obtain: No Review of Systems - Review of Systems Constitutional: Weakness. negative: Fever, Sweats Eyes: negative: pain, vision change ENT: negative: Ear Pain, Ear Discharge, Nose Pain Respiratory: Cough, Shortness of Breath, SOB with Excertion. negative: Hemoptysis Cardiovascular: negative: Chest Pain, Palpitations Gastrointestinal: negative: Nausea, Vomiting, Abdominal Pain Genitourinary: negative: Dysuria Musculoskeletal: negative: Neck Pain Skin: negative: Rash Neurological: Weakness - Medications/Allergies Allergies/Adverse Reactions: Allergies Allergy/AdvReac Type Severity Reaction Status Date / Time thioridazine HCl Allergy Rash Verified 07/30/16 11:46 [From [facility]] Home Medications: Home Medications Citalopram Hydrobromide [Citalopram HBr] 20 mg PO DAILY 09/15/17 Current Inpatient Medications: Current Inpatient Medications Albuterol/Ipratropium (Duoneb) 3 ml NEB Q4 [facility] Last Admin: 09/16/17 06:09 Dose: 3 ml Citalopram Hydrobromide (Celexa) 20 mg PO DAILY [facility] Furosemide (Lasix) 40 mg PO DAILY [facility] Ceftriaxone Sodium 1 gm/ (Sodium Chloride) 100 mls @ 200 mls/hr IV Q24H [facility] Last Admin: 09/15/17 21:30 Dose: 200 mls/hr Metformin HCl (Glucophage) 500 mg PO BID [facility] Metoprolol Tartrate (Lopressor) 50 mg PO BID [facility] Exam - Exam Vital Signs: Vital Signs (72 hours) 09/15/17 09/15/17 09/15/17 22:05 22:15 23:00 Temperature 97.3 F L Pulse Rate [ 89 94 H Pulse ox] Respiratory 24 22 Rate Blood Pressure 163/100 [Left Arm] Blood Pressure 135/86 [Right Arm] O2 Sat by Pulse 92 87 L 87 L Oximetry 09/16/17 09/16/17 09/16/17 00:00 01:00 02:15 Temperature 98.2 F Pulse Rate [ 111 H Pulse ox] Respiratory 22 Rate Blood Pressure 170/84 [Left Arm] Blood Pressure [Right Arm] O2 Sat by Pulse 93 93 94 Oximetry 09/16/17 06:00 Temperature 98.3 F Pulse Rate [ 107 H Pulse ox] Respiratory 22 Rate Blood Pressure 135/98 [Left Arm] Blood Pressure [Right Arm] O2 Sat by Pulse 89 L Oximetry General: Alert, Oriented to Person, Oriented to Place, Cooperative, Obese HEENT: Atraumatic, PERRLA, EOMI, Edentulous Neck: No: Stridor Lungs: Wheezes, Prolonged Expiration, Decreased Air Movement Cardiovascular: Regular rate Murmur: Systolic Murmur Heart Murmur Grade: II Abdomen: Normal bowel sounds, Soft, Other (Obese) Genitourinary: No: Right Inguinal Hernia, Left Inguinal Hernia Male Genitourinary: No: Scrotal Edema Female Genitourinary: No: Other Integumentary: Normal, [place], Warm, Dry Extremities: No clubbing, No cyanosis, No edema Neurological: Other (Speech is slow. He is a difficult historian) Psych/Mental Status: Other (Flat) Assessment/Plan - Assessment/Plan (1) Congestive heart failure Status: Acute Current Visit: Yes Qualifiers: Congestive heart failure type: unspecified Congestive heart failure chronicity: chronic Qualified Code(s): I50.9 - Heart failure, unspecified Assessment: Have added IV lasix (2) Pneumonia Status: Acute Current Visit: Yes Qualifiers: Pneumonia type: due to unspecified organism Laterality: bilateral Lung location: lower lobe of lung Qualified Code(s): J18.9 - Pneumonia, unspecified organism Assessment: Currently on IV Rocephin and azithromycin (3) Bipolar 1 disorder Status: Acute Current Visit: No Assessment: Continue Abilify which Dr. Strong recently increased to 10 mg po BID (4) COPD (chronic obstructive pulmonary disease) Status: Acute Current Visit: No Assessment: Duoneb treatments, supplemental oxygen (5) Essential (primary) hypertension Status: Acute Current Visit: No Assessment: Currently well controlled Plan: Continue amlodipine and metoprolol VTE Assessment - RISK FACTOR SCORE VTE RISK FACTOR SCORES: AGE OVER 60 YEARS, OBESITY, ANTICIPATED BED CONFINEMENT OR IMMOBILIZATION > 24 HOURS (On Lovenox and ELTON hose)
[2017-09-16] MEDS: METOPROLOL TARTRATE 50 MG TABLET PO SCH ×2 (08:41→19:34)
[2017-09-16] MEDS: FUROSEMIDE 40 MG TABLET PO SCH (08:41)
[2017-09-16] MEDS: CITALOPRAM HYDROBROMIDE 20 MG TABLET PO SCH (08:41)
[2017-09-16] MEDS: amLODIPine BESYLATE 5 MG TABLET PO SCH (09:04)
[2017-09-16] MEDS: ENOXAPARIN SODIUM 30 MG/0.3 ML DISP.SYRIN SQ SCH (09:05)
--- NOTE | 2017-09-16 11:12 | Diagnostic Imaging Report ---
[facility]MED SURG [facility] [address] [facility] [address] [address] Report Submission Date: Sep 16, 2017 11:06:27 AM AUTOMOBILE SERVICE STATION MANAGER Patient Study Name: MARCOS VICK Date: Sep 16, 2017 10:29:02 AM AUTOMOBILE SERVICE STATION MANAGER Modality Type: CT\SR Gender: M Description: CT CHEST PE PROTOCOL : 50 Institution: [facility] Physician: [facility]/MED SURG Examination: CT chest pulmonary embolism History: HYPOXIA AND ELEVATED D-DIMER X 1 DAY (Hx) / HYPOXIA, ELEVATED D-DIMER ( DICOM Hx) Comparison exam: Plain film dated august. Technique: CT chest pulmonic pulmonary embolism protocol. Findings: No evidence for luminal filling defect within the main pulmonary arteries to the 3rd order branch vessels bilaterally. Sensitivity at the lung bases is reduced due to large consolidative processes. Thoracic aorta without aneurysmal dilation. No evidence for dissection flap. Atherosclerotic disease and mural thickening involving the thoracic aorta. Significant bibasilar consolidations. Generalized interstitial prominence and scattered infiltrates. Apical emphysematous changes with large bulla formation. Scattered granuloma. Scattered hilar and mediastinal lymph nodes. Cardiac silhouette not enlarged. No pericardial effusion. Osseous structures demonstrate degenerative changes. Lower neck structures, axilla regions, and upper abdominal organs are without gross irregularity. Impression: No evidence for pulmonary embolism by CT criteria. No evidence for thoracic aortic dissection or abnormality. Emphysematous changes. Large bibasilar consolidations. Diffuse interstitial prominence/infiltrates. Electronically signed on Sep 16, 2017 11:06:27 AM AUTOMOBILE SERVICE STATION MANAGER by: Gerhard RASCON
[2017-09-16] MEDS: ARIPIPRAZOLE 2 MG TABLET PO SCH ×2 (13:19→19:34)
[2017-09-16] MEDS ORDERED: methylPREDNISolone SOD SUCC 125 MG/2 ML VIAL IVP ONE (13:52)
[2017-09-16 14:10] LABS: ABG BASE EXCESS 9.1 (-2 - +2); ABG PH 7.47 (7.35-7.45)
[2017-09-16] MEDS: AZITHROMYCIN 500 MG in 0.9 % SODIUM CHLORIDE 250 ML IV SCH (14:27)
[2017-09-16] MEDS ORDERED: cefTRIAXone SODIUM 1 GM VIAL ONE (20:07)
[2017-09-16] MEDS: methylPREDNISolone SOD SUCC 40 MG/ML VIAL IVP SCH (20:20)
[2017-09-16] MEDS: ACETAMINOPHEN 500 MG TABLET PO PRN (20:23)
[2017-09-16] MEDS: cefTRIAXone SODIUM 1 GM in 0.9 % SODIUM CHLORIDE 100 ML IV SCH (20:24)
[2017-09-17] MEDS: IPRATROPIUM/ALBUTEROL SULFATE 3 ML AMPUL.NEB NEB SCH ×6 (01:10→20:47)
[2017-09-17 09:15] LABS: eGFR (African) > 60; eGFR (Non-African) > 60
[2017-09-17] MEDS: METOPROLOL TARTRATE 50 MG TABLET PO SCH ×2 (09:19→20:07)
[2017-09-17] MEDS: ARIPIPRAZOLE 2 MG TABLET PO SCH ×2 (09:19→20:07)
[2017-09-17] MEDS: amLODIPine BESYLATE 5 MG TABLET PO SCH (09:19)
[2017-09-17 09:20] LABS: MEAN CORPUSCULAR HEMOGLOBIN 30.8 pg (28.0-34.0); MEAN CORPUSCULAR VOLUME 96.7 fl (80.0-100.0)
[2017-09-17] MEDS: CITALOPRAM HYDROBROMIDE 20 MG TABLET PO SCH (09:20)
[2017-09-17] MEDS: ENOXAPARIN SODIUM 30 MG/0.3 ML DISP.SYRIN SQ SCH (09:20)
[2017-09-17] MEDS: methylPREDNISolone SOD SUCC 40 MG/ML VIAL IVP SCH ×2 (09:20→21:07)
[2017-09-17] MEDS: FUROSEMIDE 40 MG TABLET PO SCH (09:20)
--- NOTE | 2017-09-17 09:59 | Inpatient Progress Note ---
Subjective - Required Recertification Statement I anticipate X number of days because-include discharge plan: 3 days - Review of Systems Events since last encounter: Patient states that he is feeling some better. Is still dyspnic with exertion. Continues to voice that he does not want to be intubated and does not want to go to [facility] for care. Had BM today. No chest pain or pressure noted. General: Denies: Chills, Night Sweats HEENT: Denies: Head Aches Pulmonary: Dyspnea, Cough. Denies: Pleuritic Chest Pain Cardiovascular: Denies: Chest Pain, Palpitations, Orthopnea, Edema Gastrointestinal: Denies: Nausea, Vomiting, Abdominal Pain Objective - Exam Vitals and I&O: Vital Signs Temp 98.1 F 09/17/17 04:13 Pulse 84 09/17/17 06:00 Resp 20 09/17/17 06:00 BP 155/81 09/17/17 04:13 Pulse Ox 86 L 09/17/17 04:13 Intake & Output 09/16/17 09/16/17 09/17/17 11:59 23:59 11:59 Intake Total 360 1920 300 Output Total 1360 300 100 Balance -1000 1620 200 Intake: IV 350 Left Antecubital 350 Oral 360 1570 300 Output: Urine 1360 300 100 Other: Voiding Method Urinal Urinal Urinal # Voids 2 1 # Bowel Movements 1 General: Alert, Oriented to Person, Oriented to Place, Oriented to Time, Cooperative Neck: Supple, No JVD Lungs: Speaks full Sentences, Wheezes (mild right), Rhonchi (scattered bialteral ). No: Accessory Muscle Use, Retractions/Splinting Cardiovascular: Regular rate, Normal S1, Normal S2, No murmurs Abdomen: Normal bowel sounds, Soft, No tenderness, No hepatospenomegaly Skin: Normal, [place], Warm, Dry Psych/Mental Status: Mental status NL, Mood NL, Appropriate Affect, Intact Judgment - Results Results: Laboratory Results WBC 7.60 K/ul (4.00-12.00) 09/15/17 20:02 RBC 4.17 M/ul (3.90-5.20) 09/15/17 20:02 Hgb 12.9 g/dL (12.0-18.0) 09/15/17 20:02 Hct 39.7 % (37.0-53.0) 09/15/17 20:02 MCV 95.3 fl (80.0-100.0) 09/15/17 20:02 MCH 30.9 pg (28.0-34.0) 09/15/17 20:02 MCHC 32.4 g/dL (30.0-36.0) 09/15/17 20:02 RDW 14.1 % (11.3-14.3) 09/15/17 20:02 Plt Count 284 K/mm3 (130-400) 09/15/17 20:02 Seg Neutrophils % 82 % (39-79) H 09/15/17 20:02 Band Neutrophils % 7 % (0-12) 09/15/17 20:02 Lymphocytes % 7 % (16-50) L 09/15/17 20:02 Monocytes % 4 % (0-11) 09/15/17 20:02 Plt Morphology Comment Normal (NORMAL) 09/15/17 20:02 RBC Morph Comment Normal (NORMAL) 09/15/17 20:02 D-Dimer 791 ng/mL (6.0-682) H 09/15/17 20:02 pH 7.47 (7.35-7.45) H 09/16/17 13:55 pCO2 47 mmhg (35-48) 09/16/17 13:55 pO2 51 mmhg (83-108) L 09/16/17 13:55 HCO3 31.8 Meq/L (21-28) H 09/16/17 13:55 ABG O2 Sat Calc/Eddie 91 % (93-100) L 09/16/17 13:55 ABG Base Excess 9.1 (-2 - +2) H 09/16/17 13:55 Sodium 141 mmol/L (136-145) 09/17/17 08:55 Potassium 3.5 mmol/L (3.5-5.1) 09/17/17 08:55 Chloride 100 mmol/L (98-107) 09/17/17 08:55 Carbon Dioxide 29 mmol/L (22-30) 09/17/17 08:55 BUN 24 mg/dL (9-20) H 09/17/17 08:55 Creatinine 0.60 mg/dL (0.66-1.25) L 09/17/17 08:55 Estimated Creat Clear 136 09/17/17 08:55 Est GFR ( Amer) > 60 (60-) 09/17/17 08:55 Est GFR (Non-Af Amer) > 60 (60-) 09/17/17 08:55 Glucose 209 mg/dL (74-106) H 09/17/17 08:55 Calcium 9.1 mg/dL (8.4-10.2) 09/17/17 08:55 Total Bilirubin 0.6 mg/dL (0.2-1.3) 09/17/17 08:55 AST 56 U/L (15-46) H 09/17/17 08:55 ALT 75 U/L (13-69) H 09/17/17 08:55 Alkaline Phosphatase 86 U/L (38-126) 09/17/17 08:55 NT-Pro-B Natriuret Pep 771.9 pg/mL (15.0-125.0) H 09/15/17 20:02 Total Protein 6.1 g/dL (6.3-8.2) L 09/17/17 08:55 Albumin 3.2 g/dL (3.5-5.0) L 09/17/17 08:55 Assessment/Plan - Assessment/Plan (1) Pneumonia Status: Acute Current Visit: Yes Qualifiers: Pneumonia type: due to unspecified organism Laterality: bilateral Lung location: lower lobe of lung Qualified Code(s): J18.9 - Pneumonia, unspecified organism (2) Bipolar 1 disorder Status: Acute Current Visit: No (3) COPD (chronic obstructive pulmonary disease) Status: Acute Current Visit: No (4) Essential (primary) hypertension Status: Acute Current Visit: No (5) Congestive heart failure Status: Chronic Current Visit: No
[2017-09-17 10:02] LABS: SEGMENTED NEUTROPHILS % 90 % (39-79)
[2017-09-17 10:03] LABS: MONOCYTES % 2 % (0-11)
[2017-09-17] MEDS: ACETAMINOPHEN 500 MG TABLET PO PRN (10:35)
[2017-09-17] MEDS ORDERED: cefTRIAXone SODIUM 1 GM VIAL ONE (13:56)
[2017-09-17] MEDS ORDERED: 0.9 % SODIUM CHLORIDE 100 ML IV ONE (13:57)
[2017-09-17] MEDS: AZITHROMYCIN 500 MG in 0.9 % SODIUM CHLORIDE 250 ML IV SCH (14:13)
--- NOTE | 2017-09-17 14:13 | Diagnostic Imaging Report ---
SHAUN PAULSON [facility] [address] [facility].[address] [address] Report Submission Date: Sep 17, 2017 2:07:55 PM DEICER ELEMENT WINDER MACHINE Patient Study Name: MARCOS VICK Date: Sep 17, 2017 1:41:59 PM DEICER ELEMENT WINDER MACHINE Modality Type: DX Gender: M Description: CHEST : 50 Institution: [facility] Physician: SHAUN PAULSON Examination: PA and lateral chest. History: Evaluate lung berman. HYPOXIA (Hx) Comparison exam: 15 September 2017 Findings: PA lateral chest demonstrate a prominent cardiac and mediastinal silhouette. Vascular calcifications involving the aortic arch. Increased interstitial infiltrates. Continued fullness involving the right middle lung. Mild blunting of the left base/costophrenic margin. Articular degenerative changes. Impression: Continued cardiac prominence. Increased parenchymal infiltrates. Left base effusion. Electronically signed on Sep 17, 2017 2:07:55 PM DEICER ELEMENT WINDER MACHINE by: Gerhard RASCON
[2017-09-17] MEDS ORDERED: FUROSEMIDE 40 MG/4 ML VIAL IVP ONE (18:29)
[2017-09-17] MEDS: cefTRIAXone SODIUM 1 GM in 0.9 % SODIUM CHLORIDE 100 ML IV SCH (21:16)
[2017-09-18] MEDS: IPRATROPIUM/ALBUTEROL SULFATE 3 ML AMPUL.NEB NEB SCH ×6 (01:38→21:16)
[2017-09-18 07:18] LABS: MEAN CORPUSCULAR HEMOGLOBIN 30.5 pg (28.0-34.0); MEAN CORPUSCULAR VOLUME 96.3 fl (80.0-100.0)
[2017-09-18 07:33] LABS: eGFR (African) > 60; eGFR (Non-African) > 60
[2017-09-18 08:10] LABS: MONOCYTES % 2 % (0-11); SEGMENTED NEUTROPHILS % 91 % (39-79)
--- NOTE | 2017-09-18 08:38 | Inpatient Progress Note ---
Subjective - Required Recertification Statement I anticipate X number of days because-include discharge plan: 3 days - Review of Systems Events since last encounter: patient stated he is feeling better although clinically he does not much improved. Patient continues to have some dyspnea. Patient stated her cough has improved some. Patient has shortness of breath with exertion. Appetite has been fair. Patient is asking when he can go home. Patient denies any chest pain or chest pressure. Objective - Exam Vitals and I&O: Vital Signs Temp 97.7 F 09/18/17 04:00 Pulse 92 H 09/18/17 05:55 Resp 24 09/18/17 05:55 BP 169/97 09/18/17 04:00 Pulse Ox 83 L 09/18/17 04:00 Intake & Output 09/17/17 09/17/17 09/18/17 11:59 23:59 11:59 Intake Total 300 650 200 Output Total 100 452 300 Balance 200 198 -100 Intake: IV 200 Left Antecubital 200 Oral 300 450 200 Output: Urine 100 450 300 Stool 2 Other: Voiding Method Urinal Urinal Urinal # Voids 1 1 # Bowel Movements 1 1 General: Alert, Oriented to Person, Oriented to Place, Oriented to Time, Cooperative Neck: Supple, No JVD Lungs: Speaks full Sentences, Respiratory Distress (mild), Rales (fine crackles bilaterally R>L) Cardiovascular: Regular rate, Normal S1, Normal S2, Tachycardia (mild) Abdomen: Normal bowel sounds, Soft, No tenderness, No hepatospenomegaly Extremities: No clubbing, No cyanosis, No edema, Normal pulses Skin: Normal, [place], Warm, Dry, Normal Turgor Psych/Mental Status: Mental status NL (at baseline) - Results Results: Laboratory Results WBC 11.30 K/ul (4.00-12.00) 09/18/17 06:35 RBC 4.04 M/ul (3.90-5.20) 09/18/17 06:35 Hgb 12.3 g/dL (12.0-18.0) 09/18/17 06:35 Hct 38.9 % (37.0-53.0) 09/18/17 06:35 MCV 96.3 fl (80.0-100.0) 09/18/17 06:35 MCH 30.5 pg (28.0-34.0) 09/18/17 06:35 MCHC 31.7 g/dL (30.0-36.0) 09/18/17 06:35 RDW 14.0 % (11.3-14.3) 09/18/17 06:35 Plt Count 179 K/mm3 (130-400) 09/18/17 06:35 Seg Neutrophils % 91 % (39-79) H 09/18/17 06:35 Band Neutrophils % 3 % (0-12) 09/18/17 06:35 Lymphocytes % 3 % (16-50) L 09/18/17 06:35 Monocytes % 2 % (0-11) 09/18/17 06:35 Reactive Lymphocytes 1 % (0-5) 09/18/17 06:35 Plt Morphology Comment Normal (NORMAL) 09/18/17 06:35 Macrocytosis 1+ (NEGATIVE) H 09/18/17 06:35 RBC Morph Comment Abnormal (NORMAL) H 09/18/17 06:35 D-Dimer 791 ng/mL (6.0-682) H 09/15/17 20:02 pH 7.47 (7.35-7.45) H 09/16/17 13:55 pCO2 47 mmhg (35-48) 09/16/17 13:55 pO2 51 mmhg (83-108) L 09/16/17 13:55 HCO3 31.8 Meq/L (21-28) H 09/16/17 13:55 ABG O2 Sat Calc/Eddie 91 % (93-100) L 09/16/17 13:55 ABG Base Excess 9.1 (-2 - +2) H 09/16/17 13:55 Sodium 143 mmol/L (136-145) 09/18/17 06:35 Potassium 3.0 mmol/L (3.5-5.1) L 09/18/17 06:35 Chloride 98 mmol/L (98-107) 09/18/17 06:35 Carbon Dioxide 33 mmol/L (22-30) H 09/18/17 06:35 BUN 25 mg/dL (9-20) H 09/18/17 06:35 Creatinine 0.80 mg/dL (0.66-1.25) 09/18/17 06:35 Estimated Creat Clear 102 09/18/17 06:35 Est GFR ( Amer) > 60 (60-) 09/18/17 06:35 Est GFR (Non-Af Amer) > 60 (60-) 09/18/17 06:35 Glucose 154 mg/dL (74-106) H 09/18/17 06:35 Estimat Average Glucose 123 mg/dL 09/17/17 08:55 Hemoglobin A1c 5.9 % (4.0-5.6) H 09/17/17 08:55 Calcium 9.0 mg/dL (8.4-10.2) 09/18/17 06:35 Total Bilirubin 0.6 mg/dL (0.2-1.3) 09/18/17 06:35 AST 48 U/L (15-46) H 09/18/17 06:35 ALT 72 U/L (13-69) H 09/18/17 06:35 Alkaline Phosphatase 100 U/L (38-126) 09/18/17 06:35 NT-Pro-B Natriuret Pep 771.9 pg/mL (15.0-125.0) H 09/15/17 20:02 Total Protein 6.1 g/dL (6.3-8.2) L 09/18/17 06:35 Albumin 3.2 g/dL (3.5-5.0) L 09/18/17 06:35 Assessment/Plan - Assessment/Plan (1) Pneumonia Status: Acute Current Visit: Yes Qualifiers: Pneumonia type: due to unspecified organism Laterality: bilateral Lung location: lower lobe of lung Qualified Code(s): J18.9 - Pneumonia, unspecified organism (2) Bipolar 1 disorder Status: Acute Current Visit: No Assessment: Will continue with present treatment. If not responding better in the next day or two will consider switching antibioitc (3) COPD (chronic obstructive pulmonary disease) Status: Acute Current Visit: No Assessment: intersitial pneumonia. I talked to patient about transfer to [place] again today but he refused. States that he is ready to go if that is what God has in store for him. (4) Essential (primary) hypertension Status: Acute Current Visit: No (5) Congestive heart failure Status: Chronic Current Visit: No Assessment: stable Plan: stable
[2017-09-18] MEDS: CITALOPRAM HYDROBROMIDE 20 MG TABLET PO SCH (09:03)
[2017-09-18] MEDS: ENOXAPARIN SODIUM 30 MG/0.3 ML DISP.SYRIN SQ SCH (09:04)
[2017-09-18] MEDS: METOPROLOL TARTRATE 50 MG TABLET PO SCH ×2 (09:04→21:29)
[2017-09-18] MEDS: amLODIPine BESYLATE 5 MG TABLET PO SCH (09:04)
[2017-09-18] MEDS: FUROSEMIDE 40 MG TABLET PO SCH (09:04)
[2017-09-18] MEDS: ARIPIPRAZOLE 2 MG TABLET PO SCH ×2 (09:34→21:34)
[2017-09-18] MEDS: POTASSIUM CHLORIDE 20 MEQ TABLET.ER PO SCH ×2 (09:38→21:29)
[2017-09-18] MEDS: methylPREDNISolone SOD SUCC 40 MG/ML VIAL IVP SCH ×2 (09:38→21:29)
[2017-09-18] MEDS ORDERED: PANTOPRAZOLE SODIUM 40 MG TABLET PO ONE (13:11)
[2017-09-18] MEDS ORDERED: cefTRIAXone SODIUM 1 GM VIAL ONE (14:15)
[2017-09-18] MEDS: AZITHROMYCIN 500 MG in 0.9 % SODIUM CHLORIDE 250 ML IV SCH (14:27)
[2017-09-18] MEDS: cefTRIAXone SODIUM 1 GM in 0.9 % SODIUM CHLORIDE 100 ML IV SCH (21:28)
[2017-09-19] MEDS: IPRATROPIUM/ALBUTEROL SULFATE 3 ML AMPUL.NEB NEB SCH ×6 (01:45→21:45)
[2017-09-19] MEDS: PANTOPRAZOLE SODIUM 40 MG TABLET PO SCH (05:42)
[2017-09-19] MEDS: ARIPIPRAZOLE 2 MG TABLET PO SCH ×2 (08:36→21:31)
[2017-09-19] MEDS: CITALOPRAM HYDROBROMIDE 20 MG TABLET PO SCH (08:36)
[2017-09-19] MEDS: METOPROLOL TARTRATE 50 MG TABLET PO SCH ×2 (08:37→21:30)
[2017-09-19] MEDS: amLODIPine BESYLATE 5 MG TABLET PO SCH (08:37)
[2017-09-19] MEDS: POTASSIUM CHLORIDE 20 MEQ TABLET.ER PO SCH ×2 (08:37→21:30)
[2017-09-19] MEDS: ENOXAPARIN SODIUM 30 MG/0.3 ML DISP.SYRIN SQ SCH (08:37)
[2017-09-19] MEDS: FUROSEMIDE 40 MG TABLET PO SCH (08:37)
--- NOTE | 2017-09-19 09:40 | Inpatient Progress Note ---
Subjective - Required Recertification Statement I anticipate X number of days because-include discharge plan: 5 - Review of Systems Subjective: Patient feeling a little better. Not wanting to eat much as he "is trying to lose weight." No cigatettes since Friday - feels his is having some withdraw. Refuses patches as he had a reaction to them in the past. Feels his Abilify will help his anxious symptoms. Objective - Exam Vitals and I&O: Vital Signs Temp 97.8 F 09/19/17 06:00 Pulse 100 H 09/19/17 06:00 Resp 24 09/19/17 06:00 BP 169/100 09/19/17 06:00 Pulse Ox 82 L 09/19/17 06:00 Intake & Output 09/18/17 09/18/17 09/19/17 11:59 23:59 11:59 Intake Total 560 120 360 Output Total 300 Balance 260 120 360 Intake: Oral 560 120 360 Output: Urine 300 Other: Voiding Method Urinal Toilet # Voids 2 General: Alert, Oriented to Person, Oriented to Place, Oriented to Time, Cooperative, Mild distress Lungs: Rhonchi Cardiovascular: Regular rate - Results Results: Laboratory Results WBC 11.30 K/ul (4.00-12.00) 09/18/17 06:35 RBC 4.04 M/ul (3.90-5.20) 09/18/17 06:35 Hgb 12.3 g/dL (12.0-18.0) 09/18/17 06:35 Hct 38.9 % (37.0-53.0) 09/18/17 06:35 MCV 96.3 fl (80.0-100.0) 09/18/17 06:35 MCH 30.5 pg (28.0-34.0) 09/18/17 06:35 MCHC 31.7 g/dL (30.0-36.0) 09/18/17 06:35 RDW 14.0 % (11.3-14.3) 09/18/17 06:35 Plt Count 179 K/mm3 (130-400) 09/18/17 06:35 Seg Neutrophils % 91 % (39-79) H 09/18/17 06:35 Band Neutrophils % 3 % (0-12) 09/18/17 06:35 Lymphocytes % 3 % (16-50) L 09/18/17 06:35 Monocytes % 2 % (0-11) 09/18/17 06:35 Reactive Lymphocytes 1 % (0-5) 09/18/17 06:35 Plt Morphology Comment Normal (NORMAL) 09/18/17 06:35 Macrocytosis 1+ (NEGATIVE) H 09/18/17 06:35 RBC Morph Comment Abnormal (NORMAL) H 09/18/17 06:35 D-Dimer 791 ng/mL (6.0-682) H 09/15/17 20:02 pH 7.47 (7.35-7.45) H 09/16/17 13:55 pCO2 47 mmhg (35-48) 09/16/17 13:55 pO2 51 mmhg (83-108) L 09/16/17 13:55 HCO3 31.8 Meq/L (21-28) H 09/16/17 13:55 ABG O2 Sat Calc/Eddie 91 % (93-100) L 09/16/17 13:55 ABG Base Excess 9.1 (-2 - +2) H 09/16/17 13:55 Sodium 143 mmol/L (136-145) 09/18/17 06:35 Potassium 3.0 mmol/L (3.5-5.1) L 09/18/17 06:35 Chloride 98 mmol/L (98-107) 09/18/17 06:35 Carbon Dioxide 33 mmol/L (22-30) H 09/18/17 06:35 BUN 25 mg/dL (9-20) H 09/18/17 06:35 Creatinine 0.80 mg/dL (0.66-1.25) 09/18/17 06:35 Estimated Creat Clear 102 09/18/17 06:35 Est GFR ( Amer) > 60 (60-) 09/18/17 06:35 Est GFR (Non-Af Amer) > 60 (60-) 09/18/17 06:35 Glucose 154 mg/dL (74-106) H 09/18/17 06:35 Estimat Average Glucose 123 mg/dL 09/17/17 08:55 Hemoglobin A1c 5.9 % (4.0-5.6) H 09/17/17 08:55 Calcium 9.0 mg/dL (8.4-10.2) 09/18/17 06:35 Total Bilirubin 0.6 mg/dL (0.2-1.3) 09/18/17 06:35 AST 48 U/L (15-46) H 09/18/17 06:35 ALT 72 U/L (13-69) H 09/18/17 06:35 Alkaline Phosphatase 100 U/L (38-126) 09/18/17 06:35 NT-Pro-B Natriuret Pep 771.9 pg/mL (15.0-125.0) H 09/15/17 20:02 Total Protein 6.1 g/dL (6.3-8.2) L 09/18/17 06:35 Albumin 3.2 g/dL (3.5-5.0) L 09/18/17 06:35 Assessment/Plan - Assessment/Plan (1) Pneumonia Status: Acute Current Visit: Yes Qualifiers: Pneumonia type: due to unspecified organism Laterality: bilateral Lung location: lower lobe of lung Qualified Code(s): J18.9 - Pneumonia, unspecified organism Plan: Continue current regimen. Afebrile and WBC have been normal. Recheck today. STill coughing yellow/green sputum. (2) COPD (chronic obstructive pulmonary disease) Status: Acute Current Visit: Yes Qualifiers: COPD type: COPD with acute exacerbation Qualified Code(s): J44.1 - Chronic obstructive pulmonary disease with (acute) exacerbation Plan: I am going to increase solumedrol to q8hr. (3) Hypokalemia Status: Acute Current Visit: Yes Plan: Recheck today. Will replace as necessary. (4) Congestive heart failure Status: Acute Current Visit: Yes Qualifiers: Qualified Code(s): I50.9 - Heart failure, unspecified Plan: Patient has been getting po lasix. Mild edema. Due to hypoxia and rhonchi I am going to try a dose of IV lasix to see if this improves his breathing function.
[2017-09-19] MEDS: methylPREDNISolone SOD SUCC 40 MG/ML VIAL IVP SCH ×3 (09:48→21:38)
[2017-09-19 11:40] LABS: BASOPHILS % 0.3 (0.0-1.5); EOSINOPHILS % 0.1 % (0.0-6.8); MEAN CORPUSCULAR HEMOGLOBIN 30.5 pg (28.0-34.0); MEAN CORPUSCULAR VOLUME 94.3 fl (80.0-100.0); MONOCYTES % 4.2 % (0.0-11.0); NEUTROPHILS # 8.6 # k/uL (1.4-7.7)
[2017-09-19] MEDS ORDERED: FUROSEMIDE 40 MG/4 ML VIAL IVP ONE (12:00)
[2017-09-19 12:21] LABS: eGFR (African) > 60; eGFR (Non-African) > 60
[2017-09-19] MEDS ORDERED: FUROSEMIDE 20 MG/2 ML VIAL ONE (13:08)
[2017-09-19] MEDS: AZITHROMYCIN 500 MG in 0.9 % SODIUM CHLORIDE 250 ML IV SCH (16:11)
[2017-09-19] MEDS: cefTRIAXone SODIUM 1 GM in 0.9 % SODIUM CHLORIDE 100 ML IV SCH (21:58)
[2017-09-20] MEDS: IPRATROPIUM/ALBUTEROL SULFATE 3 ML AMPUL.NEB NEB SCH ×6 (01:29→22:24)
[2017-09-20] MEDS: methylPREDNISolone SOD SUCC 40 MG/ML VIAL IVP SCH ×3 (05:17→22:24)
[2017-09-20 06:38] LABS: MEAN CORPUSCULAR HEMOGLOBIN 29.9 pg (28.0-34.0); MEAN CORPUSCULAR VOLUME 96.3 fl (80.0-100.0)
[2017-09-20 07:03] LABS: eGFR (African) > 60; eGFR (Non-African) > 60
[2017-09-20] MEDS: PANTOPRAZOLE SODIUM 40 MG TABLET PO SCH (07:44)
[2017-09-20] MEDS: amLODIPine BESYLATE 5 MG TABLET PO SCH ×2 (09:44→10:21)
[2017-09-20] MEDS: POTASSIUM CHLORIDE 20 MEQ TABLET.ER PO SCH ×2 (09:44→22:10)
[2017-09-20] MEDS: FUROSEMIDE 40 MG TABLET PO SCH ×2 (09:44→10:21)
[2017-09-20] MEDS: METOPROLOL TARTRATE 50 MG TABLET PO SCH ×2 (09:44→22:10)
[2017-09-20] MEDS: CITALOPRAM HYDROBROMIDE 20 MG TABLET PO SCH ×3 (09:44→10:19)
[2017-09-20] MEDS: ARIPIPRAZOLE 2 MG TABLET PO SCH ×2 (09:45→22:11)
[2017-09-20] MEDS: ENOXAPARIN SODIUM 30 MG/0.3 ML DISP.SYRIN SQ SCH (09:45)
[2017-09-20] MEDS: AZITHROMYCIN 500 MG in 0.9 % SODIUM CHLORIDE 250 ML IV SCH (15:38)
[2017-09-20] MEDS ORDERED: 0.9 % SODIUM CHLORIDE 250 ML IV ONE (22:05)
[2017-09-20] MEDS ORDERED: cefTRIAXone SODIUM 1 GM VIAL ONE (22:06)
[2017-09-20] MEDS: cefTRIAXone SODIUM 1 GM in 0.9 % SODIUM CHLORIDE 100 ML IV SCH (22:30)
[2017-09-21] MEDS: IPRATROPIUM/ALBUTEROL SULFATE 3 ML AMPUL.NEB NEB SCH ×4 (01:00→14:47)
[2017-09-21] MEDS: methylPREDNISolone SOD SUCC 40 MG/ML VIAL IVP SCH ×2 (04:20→13:42)
[2017-09-21] MEDS: PANTOPRAZOLE SODIUM 40 MG TABLET PO SCH (06:20)
[2017-09-21 08:08] LABS: eGFR (African) > 60; eGFR (Non-African) > 60
[2017-09-21] MEDS: POTASSIUM CHLORIDE 20 MEQ TABLET.ER PO SCH (08:53)
[2017-09-21] MEDS: CITALOPRAM HYDROBROMIDE 20 MG TABLET PO SCH (08:53)
[2017-09-21] MEDS: METOPROLOL TARTRATE 50 MG TABLET PO SCH (08:53)
[2017-09-21] MEDS: FUROSEMIDE 40 MG TABLET PO SCH (08:53)
[2017-09-21] MEDS: ARIPIPRAZOLE 2 MG TABLET PO SCH (08:54)
[2017-09-21] MEDS: ENOXAPARIN SODIUM 30 MG/0.3 ML DISP.SYRIN SQ SCH (08:54)
[2017-09-21] MEDS: amLODIPine BESYLATE 5 MG TABLET PO SCH (08:55)
--- NOTE | 2017-09-21 10:12 | Diagnostic Imaging Report ---
SHAUN PAULSON [facility] [address] [facility] [address] [address] Report Submission Date: Sep 21, 2017 8:37:35 AM AIR ANALYST Patient Study Name: MARCOS VICK Date: Sep 21, 2017 8:17:54 AM AIR ANALYST Modality Type: DX Gender: M Description: CHEST : 50 Institution: [facility] Physician: SHAUN PAULSON Chest, PA and lateral History: Pneumonia Findings: There is no pleural effusion or pneumothorax. There is flattening of the diaphragms, consistent with emphysema. There are bilateral lung infiltrates. The heart is enlarged. There is calcification in the thoracic aorta. Pulmonary vascularity is normal. Since 17 September 2017, infiltrate in the right upper lobe has improved slightly. Little change has occurred otherwise. Impression: Diffuse bilateral lung infiltrates, slightly improved. Electronically signed on Sep 21, 2017 8:37:35 AM AIR ANALYST by: Alejandro RASCON
--- NOTE | 2017-09-21 13:10 | Inpatient Progress Note ---
Subjective - Required Recertification Statement I anticipate X number of days because-include discharge plan: 3 - Review of Systems Events since last encounter: Patient states that he is about the same. States that he would like to return to [facility] to " with dignity". Patient denies that he is in any pain at this time. Cough has improved. Has been having BM. Appetite has been fair. General: Denies: Chills Pulmonary: Dyspnea, Cough Cardiovascular: Denies: Chest Pain, Palpitations, Paroxysmal Noc. Dyspnea Gastrointestinal: Denies: Nausea, Vomiting, Abdominal Pain, Diarrhea, Constipation Objective - Exam Vitals and I&O: Vital Signs Temp 97.3 F L 09/21/17 10:00 Pulse 85 09/21/17 10:00 Resp 24 09/21/17 10:00 BP 135/95 09/21/17 10:00 Pulse Ox 95 09/21/17 10:00 Intake & Output 09/20/17 09/21/17 09/21/17 23:59 11:59 23:59 Intake Total 360 240 Balance 360 240 Intake: Oral 360 240 Other: Voiding Method Urinal Urinal # Voids 1 General: Alert, Oriented to Person, Oriented to Place, Oriented to Time, Cooperative Neck: Supple, No JVD Lungs: Speaks full Sentences, Respiratory Distress, Wheezes (mild), Rales (R>L) . No: Rhonchi, St[place] Cardiovascular: Regular rate, Normal S1, Normal S2, No murmurs Abdomen: Normal bowel sounds, Soft, No tenderness Extremities: No clubbing, No cyanosis - Results Results: Laboratory Results WBC 8.60 K/ul (4.00-12.00) 09/20/17 06:20 RBC 3.99 M/ul (3.90-5.20) 09/20/17 06:20 Hgb 11.9 g/dL (12.0-18.0) L 09/20/17 06:20 Hct 38.4 % (37.0-53.0) 09/20/17 06:20 MCV 96.3 fl (80.0-100.0) 09/20/17 06:20 MCH 29.9 pg (28.0-34.0) 09/20/17 06:20 MCHC 31.0 g/dL (30.0-36.0) 09/20/17 06:20 RDW 13.9 % (11.3-14.3) 09/20/17 06:20 Plt Count 188 K/mm3 (130-400) 09/20/17 06:20 Neut % (Auto) 86.9 % (39.0-79.0) H 09/19/17 11:30 Lymph % (Auto) 5.7 % (16.0-50.0) L 09/19/17 11:30 [place] % (Auto) 4.2 % (0.0-11.0) 09/19/17 11:30 Eos % (Auto) 0.1 % (0.0-6.8) 09/19/17 11:30 Baso % (Auto) 0.3 (0.0-1.5) 09/19/17 11:30 Neut # (Auto) 8.6 # k/uL (1.4-7.7) H 09/19/17 11:30 Lymph # (Auto) 0.6 # k/uL (0.6-4.0) 09/19/17 11:30 [place] # (Auto) 0.4 # k/uL (0.0-0.9) 09/19/17 11:30 Eos # (Auto) 0.0 # k/uL (0.0-0.6) 09/19/17 11:30 Baso # (Auto) 0.0 # k/uL (0.0-0.5) 09/19/17 11:30 Seg Neutrophils % 91 % (39-79) H 09/18/17 06:35 Band Neutrophils % 3 % (0-12) 09/18/17 06:35 Lymphocytes % 3 % (16-50) L 09/18/17 06:35 Reactive Lymphs % 2.8 % (0.0-5.0) 09/19/17 11:30 Monocytes % 2 % (0-11) 09/18/17 06:35 Reactive Lymphs # 0.3 # k/uL (0.0-0.8) 09/19/17 11:30 Reactive Lymphocytes 1 % (0-5) 09/18/17 06:35 Plt Morphology Comment Normal (NORMAL) 09/18/17 06:35 Macrocytosis 1+ (NEGATIVE) H 09/18/17 06:35 RBC Morph Comment Abnormal (NORMAL) H 09/18/17 06:35 D-Dimer 791 ng/mL (6.0-682) H 09/15/17 20:02 pH 7.47 (7.35-7.45) H 09/16/17 13:55 pCO2 47 mmhg (35-48) 09/16/17 13:55 pO2 51 mmhg (83-108) L 09/16/17 13:55 HCO3 31.8 Meq/L (21-28) H 09/16/17 13:55 ABG O2 Sat Calc/Eddie 91 % (93-100) L 09/16/17 13:55 ABG Base Excess 9.1 (-2 - +2) H 09/16/17 13:55 Sodium 142 mmol/L (136-145) 09/21/17 07:40 Potassium 4.1 mmol/L (3.5-5.1) 09/21/17 07:40 Chloride 102 mmol/L (98-107) 09/21/17 07:40 Carbon Dioxide 32 mmol/L (22-30) H 09/21/17 07:40 BUN 29 mg/dL (9-20) H 09/21/17 07:40 Creatinine 0.50 mg/dL (0.66-1.25) L 09/21/17 07:40 Estimated Creat Clear 163 09/21/17 07:40 Est GFR ( Amer) > 60 (60-) 09/21/17 07:40 Est GFR (Non-Af Amer) > 60 (60-) 09/21/17 07:40 Glucose 167 mg/dL (74-106) H 09/21/17 07:40 Estimat Average Glucose 123 mg/dL 09/17/17 08:55 Hemoglobin A1c 5.9 % (4.0-5.6) H 09/17/17 08:55 Calcium 8.8 mg/dL (8.4-10.2) 09/21/17 07:40 Total Bilirubin 0.6 mg/dL (0.2-1.3) 09/19/17 11:30 AST 37 U/L (15-46) 09/19/17 11:30 ALT 62 U/L (13-69) 09/19/17 11:30 Alkaline Phosphatase 105 U/L (38-126) 09/19/17 11:30 NT-Pro-B Natriuret Pep 771.9 pg/mL (15.0-125.0) H 09/15/17 20:02 Total Protein 6.0 g/dL (6.3-8.2) L 09/19/17 11:30 Albumin 3.1 g/dL (3.5-5.0) L 09/19/17 11:30 Assessment/Plan - Assessment/Plan (1) Pneumonia Status: Acute Current Visit: Yes Qualifiers: Pneumonia type: due to unspecified organism Laterality: bilateral Lung location: lower lobe of lung Qualified Code(s): J18.9 - Pneumonia, unspecified organism Assessment: seems to be stable to improved. Will continue with present medications. Will repeat CXR in the AM (2) Bipolar 1 disorder Status: Acute Current Visit: No Assessment: stable (3) COPD (chronic obstructive pulmonary disease) Status: Acute Current Visit: Yes Qualifiers: COPD type: COPD with acute exacerbation Qualified Code(s): J44.1 - Chronic obstructive pulmonary disease with (acute) exacerbation Assessment: continue with present treatment (4) Essential (primary) hypertension Status: Chronic Current Visit: No Assessment: stable on home meds (5) Congestive heart failure Status: Chronic Current Visit: No Assessment: stable
--- NOTE | 2017-09-21 13:15 | Inpatient Progress Note ---
Subjective - Required Recertification Statement I anticipate X number of days because-include discharge plan: 2 days Objective - Exam Vitals and I&O: Vital Signs Temp 97.3 F L 09/21/17 10:00 Pulse 85 09/21/17 10:00 Resp 24 09/21/17 10:00 BP 135/95 09/21/17 10:00 Pulse Ox 95 09/21/17 10:00 Intake & Output 09/20/17 09/21/17 09/21/17 23:59 11:59 23:59 Intake Total 360 240 Balance 360 240 Intake: Oral 360 240 Other: Voiding Method Urinal Urinal # Voids 1 - Results Results: Laboratory Results WBC 8.60 K/ul (4.00-12.00) 09/20/17 06:20 RBC 3.99 M/ul (3.90-5.20) 09/20/17 06:20 Hgb 11.9 g/dL (12.0-18.0) L 09/20/17 06:20 Hct 38.4 % (37.0-53.0) 09/20/17 06:20 MCV 96.3 fl (80.0-100.0) 09/20/17 06:20 MCH 29.9 pg (28.0-34.0) 09/20/17 06:20 MCHC 31.0 g/dL (30.0-36.0) 09/20/17 06:20 RDW 13.9 % (11.3-14.3) 09/20/17 06:20 Plt Count 188 K/mm3 (130-400) 09/20/17 06:20 Neut % (Auto) 86.9 % (39.0-79.0) H 09/19/17 11:30 Lymph % (Auto) 5.7 % (16.0-50.0) L 09/19/17 11:30 [place] % (Auto) 4.2 % (0.0-11.0) 09/19/17 11:30 Eos % (Auto) 0.1 % (0.0-6.8) 09/19/17 11:30 Baso % (Auto) 0.3 (0.0-1.5) 09/19/17 11:30 Neut # (Auto) 8.6 # k/uL (1.4-7.7) H 09/19/17 11:30 Lymph # (Auto) 0.6 # k/uL (0.6-4.0) 09/19/17 11:30 [place] # (Auto) 0.4 # k/uL (0.0-0.9) 09/19/17 11:30 Eos # (Auto) 0.0 # k/uL (0.0-0.6) 09/19/17 11:30 Baso # (Auto) 0.0 # k/uL (0.0-0.5) 09/19/17 11:30 Seg Neutrophils % 91 % (39-79) H 09/18/17 06:35 Band Neutrophils % 3 % (0-12) 09/18/17 06:35 Lymphocytes % 3 % (16-50) L 09/18/17 06:35 Reactive Lymphs % 2.8 % (0.0-5.0) 09/19/17 11:30 Monocytes % 2 % (0-11) 09/18/17 06:35 Reactive Lymphs # 0.3 # k/uL (0.0-0.8) 09/19/17 11:30 Reactive Lymphocytes 1 % (0-5) 09/18/17 06:35 Plt Morphology Comment Normal (NORMAL) 09/18/17 06:35 Macrocytosis 1+ (NEGATIVE) H 09/18/17 06:35 RBC Morph Comment Abnormal (NORMAL) H 09/18/17 06:35 D-Dimer 791 ng/mL (6.0-682) H 09/15/17 20:02 pH 7.47 (7.35-7.45) H 09/16/17 13:55 pCO2 47 mmhg (35-48) 09/16/17 13:55 pO2 51 mmhg (83-108) L 09/16/17 13:55 HCO3 31.8 Meq/L (21-28) H 09/16/17 13:55 ABG O2 Sat Calc/Eddie 91 % (93-100) L 09/16/17 13:55 ABG Base Excess 9.1 (-2 - +2) H 09/16/17 13:55 Sodium 142 mmol/L (136-145) 09/21/17 07:40 Potassium 4.1 mmol/L (3.5-5.1) 09/21/17 07:40 Chloride 102 mmol/L (98-107) 09/21/17 07:40 Carbon Dioxide 32 mmol/L (22-30) H 09/21/17 07:40 BUN 29 mg/dL (9-20) H 09/21/17 07:40 Creatinine 0.50 mg/dL (0.66-1.25) L 09/21/17 07:40 Estimated Creat Clear 163 09/21/17 07:40 Est GFR ( Amer) > 60 (60-) 09/21/17 07:40 Est GFR (Non-Af Amer) > 60 (60-) 09/21/17 07:40 Glucose 167 mg/dL (74-106) H 09/21/17 07:40 Estimat Average Glucose 123 mg/dL 09/17/17 08:55 Hemoglobin A1c 5.9 % (4.0-5.6) H 09/17/17 08:55 Calcium 8.8 mg/dL (8.4-10.2) 09/21/17 07:40 Total Bilirubin 0.6 mg/dL (0.2-1.3) 09/19/17 11:30 AST 37 U/L (15-46) 09/19/17 11:30 ALT 62 U/L (13-69) 09/19/17 11:30 Alkaline Phosphatase 105 U/L (38-126) 09/19/17 11:30 NT-Pro-B Natriuret Pep 771.9 pg/mL (15.0-125.0) H 09/15/17 20:02 Total Protein 6.0 g/dL (6.3-8.2) L 09/19/17 11:30 Albumin 3.1 g/dL (3.5-5.0) L 09/19/17 11:30 Assessment/Plan - Assessment/Plan (1) Pneumonia Status: Acute Current Visit: Yes Qualifiers: Pneumonia type: due to unspecified organism Laterality: bilateral Lung location: lower lobe of lung Qualified Code(s): J18.9 - Pneumonia, unspecified organism (2) Bipolar 1 disorder Status: Acute Current Visit: No (3) COPD (chronic obstructive pulmonary disease) Status: Acute Current Visit: Yes Qualifiers: COPD type: COPD with acute exacerbation Qualified Code(s): J44.1 - Chronic obstructive pulmonary disease with (acute) exacerbation (4) Essential (primary) hypertension Status: Chronic Current Visit: No (5) Congestive heart failure Status: Chronic Current Visit: No
[2017-09-21 15:17] VITALS: BP 141/91
[2017-09-21] MEDS ORDERED: IPRATROPIUM/ALBUTEROL SULFATE 3 ML AMPUL.NEB NEB ONE (16:47)
--- NOTE | 2017-09-23 11:42 | Discharge Summary ---
Discharge Summary - Discharge Sumary History of Present Illness: This is a 67 year old male, resident of [facility] and patient of Dr. Strong who was admitted last month with pneumonia who had not been feeling well the past several days with cough and wheezing. He continued to decline and came to the ER last night with hypoxia, cough and wheezing. He was found to have bibasilar pneumonia and the right was dense enough that the radiologist has recommended follow up to resolution to exclude any underlying malignancy. He has a long history of smoking and continues to smoke, but is evasive regarding how much he smokes. He has been started on lasix, as well as Rocephin and azithromycin. He saw Dr. Strong last week, and was asking that his oxygen be picked up as he had stopped using it, however this had not been done yet, and he admits that he does need it. Condition at Discharge: Guarded Home Medications: Ambulatory Orders Medication Instructions Recorded Acetaminophen [Tylenol Extra 1,000 mg PO Q4 PRN 11/07/15 Strength] Citalopram Hydrobromide 20 mg PO DAILY 09/15/17 [Citalopram HBr] Consultations this Visit: None Procedures this Visit: None Allergies/Adverse Reactions: Allergies Allergy/AdvReac Type Severity Reaction Status Date / Time thioridazine HCl Allergy Rash Verified 07/30/16 11:46 [From [facility]] Discharge Summary: On admission it appeared that the patient with developing bilateral interstitial infiltrates. Patient was started on IV antibiotic therapy of azithromycin and Rocephin. Patient was done on high flow nebulization treatments with DuoNeb. Due to the patient underline COPD patient was started on IV's steroid with Solu-Medrol. Initially patient breathing status became worse. Patient required a nonrebreather mask in order to maintain SaO2 in the mid 80s. Patient was advised to consider transferred to [facility] but he refused. For several days patient oxygenation some time did down into the 70s even on a nonrebreather mask. Patient blood sugars did remain fairly stable during the hospitalization. Patient did have some mild hyperglycemia on admission. Patient blood pressure remained stable during the hospitalization on his own medications. Patient bipolar disorder remain stable on his home medications. At the time to discharge patient was noted to be discharged back to [facility]. Patient was advised that I could multiply oxygen needs at [facility] since he was still on a nonrebreather mask at 10 to 12 leaders. Patient stated he wanted " with dignity" and wanted to be transferred back to [facility]. I did talk to the patient guardian and was elected to admit the patient to [facility] so that we could needed oxygen needs for short period of time until we can get it breathing during better. Patient was subsequently discharged in guarded condition. - Final Diagnosis (1) Pneumonia Problems: interstitial pneumonia, appears to be improving at this time (2) Bipolar 1 disorder Problems: stable with no behavioral problems (3) COPD (chronic obstructive pulmonary disease) Problems: acute exacerbation related to pneumonia (4) Essential (primary) hypertension Problems: stable (5) Congestive heart failure Problems: stable
== END 2017-09-21 15:22 | DRG 190 ==
LOC: ED 19:44 → SOUTH 22:00
PROVIDERS: ADMIT Family Medicine; ATTEND Family Medicine
DX: J44.1 Chronic obstructive pulmonary disease with (acute) exacerbation (principal); J18.9 Pneumonia, unspecified organism; I50.9 Heart failure, unspecified; I10 Essential (primary) hypertension; F17.210 Nicotine dependence, cigarettes, uncomplicated; F31.9 Bipolar disorder, unspecified; R73.9 Hyperglycemia, unspecified
CPT/HCPCS: 36415; 36600; 71046; 71275; 80048; 80053; 82803; 83036; 83880; 85025; 85027; 85379; 87040; 93005; 94640; 94760; A9270; J0456; J0696; J1650; J1940; J2920; J2930; J7050; 96365; 96375; 99222; 99232; 99238; 99284; Q9967; J1030; S1016

== ENCOUNTER 2017-09-24 01:15 | Outpatient (CLI) | payer OTHER ==
[2017-09-21 12:11] VITALS: BP 135/95
[2017-09-24 09:52] LABS: eGFR (African) > 60; eGFR (Non-African) > 60
== END 2017-09-24 01:16 ==
LOC: LAB 01:15
PROVIDERS: ATTEND Family Medicine
DX: I50.9 Heart failure, unspecified (principal)
CPT/HCPCS: 36415; 80048

== ENCOUNTER 2017-10-13 16:10 | Outpatient (CLI) | payer OTHER ==
[2017-09-21 12:11] VITALS: BP 135/95
[2017-10-13 17:16] LABS: eGFR (African) > 60; eGFR (Non-African) > 60
--- NOTE | 2017-10-13 18:50 | Diagnostic Imaging Report ---
SHAUN PAULSON [facility] [address] [facility] [address] Report Submission Date: Oct 13, 2017 6:09:57 PM CDT Patient Study Name: MARCOS VICK Date: Oct 13, 2017 4:23:52 PM CDT Modality Type: DX Gender: M Description: CHEST : 50 Institution: [facility] Physician: SHAUN PAULSON Examination: PA and lateral chest. History: Evaluate lung berman. COUGH (Hx) Comparison exam: 21 September 2017 Findings: PA lateral chest demonstrate a prominent cardiac and mediastinal silhouette. Vascular calcifications aortic arch. Continued parenchyma fullness right inferior hilum. No focal infiltrate. No blunting of the costophrenic margins. Scattered pulmonary granuloma. Osseous structures are appropriate for age. Impression: Stable parenchymal scarring. No new consolidative process or effusion. Electronically signed on Oct 13, 2017 6:09:57 PM CDT by: Gerhard RASCON
== END 2017-10-13 16:11 ==
LOC: LAB 16:10
PROVIDERS: ATTEND Family Medicine
DX: J43.1 Panlobular emphysema (principal); E11.9 Type 2 diabetes mellitus without complications; F31.9 Bipolar disorder, unspecified
CPT/HCPCS: 36415; 71046; 80053

== ENCOUNTER 2018-10-13 13:44 | Outpatient (CLI) | payer OTHER ==
[2017-09-21 12:11] VITALS: BP 135/95
[2018-10-13 14:41] LABS: eGFR (Non-African) 38
== END 2018-10-13 13:55 ==
LOC: LAB 13:44
PROVIDERS: ATTEND Family Medicine
DX: E11.9 Type 2 diabetes mellitus without complications (principal); Z79.4 Long term (current) use of insulin
CPT/HCPCS: 36415; 80053; 80061; 82043; 83036

== ENCOUNTER 2019-01-07 13:00 | Outpatient (CLI) | payer OTHER ==
[2017-09-21 12:11] VITALS: BP 135/95
[2019-01-18 09:43] LABS: A1C 5.4 % (<5.7); eGFR (Non-African) > 60
[2019-01-18 16:36] LABS: HDL 39 mg/dL (>40)
== END 2019-01-07 13:05 | disposition home or self-care (01) ==
LOC: LABRHC 13:00
PROVIDERS: ATTEND Family Medicine
DX: N18.9 Chronic kidney disease, unspecified (principal)
CPT/HCPCS: 80053; 80061; 83036; 85025

== ENCOUNTER 2019-06-22 10:38 | Outpatient (CLI) | payer OTHER ==
[2017-09-21 12:11] VITALS: BP 135/95
[2019-06-22 11:10] LABS: A1C 5.5 % (<5.7)
[2019-06-22 11:27] LABS: HDL 40 mg/dL (>40); eGFR (Non-African) > 60
== END 2019-06-22 10:43 ==
LOC: LAB 10:38
PROVIDERS: ATTEND Family Medicine
DX: I10 Essential (primary) hypertension (principal); E11.9 Type 2 diabetes mellitus without complications
CPT/HCPCS: 36415; 80053; 80061; 83036